=== PATIENT | male | born 1940 | race Two or more races ===

== ENCOUNTER 2024-01-10 09:37 | Emergency (ER) | payer OTHER, MEDICARE ==
--- OUTSIDE RECORDS SUMMARY | 2024-01-10 09:41 | XMS REPORT | Clinical Summary ---
Author Name Unknown Organization [facility] Address [address] [place] [address] Care Team Providers Care District Extension Service Agent Name Role Phone Bryce Self MD Primary Care Provider Bryce Self MD Unavailable Mckinley Patterson MD Unavailable [phone] Mark Cook MD Unavailable [phone] Tonya Solomon MD Unavailable Allergies No known active allergies Medications Medication Sig Dispensed Refills Start Date End Date Status tacrolimus (PROGRAF) 1 mg capsule Take 1 mg by mouth every 12 (twelve) hours. 1 mg in AM and 0.5 mg in the evening 0 Active predniSONE (DELTASONE) 5 mg tablet Take 5 mg by mouth daily. 0 Active azithromycin (ZITHROMAX) 500 mg tablet Take 500 mg by mouth daily. 0 Active calcium carbonate-vitami n D3 1,250 mg (500 mg as elemental)-200 units tablet Take 1 tablet by mouth 3 (three) times a day with meals. 0 Active magnesium oxide (MAOX) 400 mg tablet Take 400 mg by mouth 4 (four) times a day. 0 Active ANTIOX#13/MIN/FA /LUTEIN/ZEAXAN (LIPOTRIAD ORAL) Take 1 tablet by mouth daily. 0 Active metoprolol tartrate (LOPRESSOR) 50 mg tablet Take 50 mg by mouth daily. 0 Active aspirin 81 mg EC tablet Take 81 mg by mouth daily. 0 Active cholecalciferol, vitamin D3, (VITAMIN D3) 2,000 units tab tablet Take 400 Units by mouth daily. 0 Active TAMSULOSIN HCL (TAMSULOSIN ORAL) Take 1 tablet by mouth daily. 0 Active hydrALAZINE (APRESOLINE) 50 mg tablet Take 50 mg by mouth 3 (three) times a day. Reported on 12/14/2016 0 Active pantoprazole (PROTONIX) 40 mg EC tablet Take 40 mg by mouth daily with breakfast. 0 Active amLODIPine (NORVASC) 2.5 mg tablet Take 2.5 mg by mouth twice daily. 0 Active mycophenolate (CELLCEPT) 250 mg capsule Take 250 mg by mouth twice daily. 0 Active rosuvastatin (CRESTOR) 20 mg tablet Take 20 mg by mouth at bedtime. 0 Active dapsone 25 mg tablet Take 50 mg by mouth daily. 0 Active finasteride (PROSCAR) 5 mg tablet Take 5 mg by mouth daily. 0 Active Jardiance 10 mg tab TAKE 1 TABLET BY MOUTH ONCE DAILY 0 02/09/2022 Active gabapentin (NEURONTIN) 100 mg capsule 3 (three) times a day. 0 02/09/2022 Active triamcinolone (KENALOG) 0.1% cream Apply 1 application topically to affected area(s) as needed for rash. 0 11/15/2023 Discontinued linaGLIPtin (TRADJENTA) 5 mg tab Take 5 mg by mouth daily. 0 11/15/2023 Discontinued Active Problems Problem Noted Date Diagnosed Date Scabies 10/12/2016 Encounters Date Type Department Care Team Description 11/15/2023 11:00 AM MEDICAL AFFAIRS LEADER [facility] - Dermatology [address] [place] [address] Main [facility], 9th [place] [address] Tonya Solomon MD Hemangioma of skin and subcutaneous tissue (Primary Dx); Seborrheic keratosis; Stasis dermatitis 11/15/2023 Travel after 01/10/2023 Surgical History Surgery Date Site/Laterality Comments HERNIA REPAIR inguinal hernia repair - 2021 Medical History Medical History Date Comments Covid-19 12/2021 Social History Tobacco Use Types Packs/Day Years Used Date Smoking Tobacco: Former Smokeless Tobacco: Never Tobacco Cessation:Counseling Given: Not Answered Sex and Gender Information Value Date Recorded Sex Assigned at Not on file Gender Identity Not on file Sexual Orientation Not on file Job Start Date Occupation Industry Not on file Not on file Not on file Obstetrics History Last Filed Vital Signs Vital Sign Reading Time Taken Comments Blood Pressure 149/77 11/15/2023 11:35 AM MEDICAL AFFAIRS LEADER Pulse 78 11/15/2023 11:35 AM MEDICAL AFFAIRS LEADER Temperature 36.5 C (97.7 F) 11/15/2023 11:[address] Respiratory Rate 18 11/15/2023 11:35 AM MEDICAL AFFAIRS LEADER Oxygen Saturation - - Inhaled Oxygen Concentration - - Weight - - Height - - Body Mass Index - - Plan of Treatment Health Maintenance Due Date Last Done Comments COVID-19 Vaccine (2022-2 4 season) 2023 05/11/2021, 10/31/2020, 10/10/2020 Influenza Vaccine 05/26/2023 07/24/2022, , 05/12/2020, Additional history exists Medical Devices Implanted Type Area Him Manager Device Identifier Shelf Expiration Date Model / Serial / Lot Defibrillator Description:Internal defibri llator - on left upper chest, placed in 08/2020. Care Teams District Extension Service Agent Relationship Specialty [place] [address] [place] [id number] PCP - General 11/25/15 Mark Cook MD [address] [place] [id number] PCP - External Primary Care Provider Family Practice 02/19/21 Bryce Self MD [address] [place] [id number] Physician 12/02/15 Mckinley Patterson MD [address] [place] [id number] Physician Gastroenterology 04/05/18 Tonya Solomon MD [address] [place] [id number] Physician Dermatology 03/30/22
[2024-01-10 10:13] LABS: Absolute Lymphocytes (CBC) 0.2 K/uL (0.7-4.9); Absolute Monocytes 0.2 K/uL (0.1-1.3); Absolute Neutrophil 7.5 K/uL (1.8-8.0); Basophils % 0.3 % (0-1.3); Eosinophils % 0.6 % (0-4.4); Hematocrit 43.6 % (39.6-49.0); Lymphocytes % 2.4 % (15.3-44.8); MCH 32.6 pg (27.0-35.0); MCHC 32.1 g/dL (32.0-36.0); MCV 101.5 fL (80-100); MPV 7.9 fL (7.6-11.3); Monocytes % 2.8 % (3.3-12.3); Neutrophils % 93.9 % (41.7-73.7); Platelets 129 thou/uL (152-406); RBC Red Blood Cell Count 4.29 M/uL (4.33-5.43); Red Cell Distribution Width 14.9 % (12.1-15.2)
[2024-01-10 10:34] LABS: Albumin 3.9 g/dL (3.4-5.0); Anion Gap 5.7 mEq/L (5.0-15.0); Bilirubin Direct 0.3 mg/dL (0-0.2); Bilirubin Indirect, Calculated 0.9 mg/dL (0.2-0.8); Bilirubin Total 1.2 mg/dL (0.2-1.0); Globulin 3.9 g/dL (2.3-3.5); Magnesium 2.1 mg/dL (1.6-2.4); Potassium 3.7 mEq/L (3.5-5.1); Protein, Total 7.8 g/dL (6.4-8.2)
[2024-01-10 10:35] LABS: Specific Gravity 1.025 (1.005-1.030); Sqamous Epithelial None Seen /HPF (None Seen); Urine Bacteria None Seen /HPF (<20); Urine Bilirubin NEGATIVE (Negative); Urine Blood Negative (Negative); Urine Clarity Clear (Clear); Urine Color Yellow (Yellow); Urine Culture Reflex Order NOT NEEDED; Urine Glucose 4+ (Over) (Negative); Urine Ketones NEGATIVE (Negative); Urine Micro Reflex YN NO BILL MICROSCOPIC; Urine Nitrite NEGATIVE (Negative); Urine Protein TRACE (Negative); Urine RBC <5 /HPF (None Seen); Urine Urobilinogen Normal (Normal); Urine WBC <5 /HPF (<5); Urine pH 6.5 (5.0-7.0)
[2024-01-10 10:36] LABS: Troponin High Sensitivity 170.1 pg/mL (<58.9)
[2024-01-10 10:38] LABS: Protime INR 1.09
[2024-01-10 11:11] LABS: Blood Morphology Comment NOT SEEN (NOT SEEN); Platelet Estimate DECR; White Blood Cell Scan OK (OK)
--- NOTE | 2024-01-10 11:23 | RAD REPORT ---
EXAM DESCRIPTION: CT - Chest Abdomen Pelvis W Cont - 01/10/2024 10:57 am CLINICAL HISTORY: abd/chest pain; h/o lung transplant COMPARISON: No comparisons TECHNIQUE: Thin axial CT images of the chest, abdomen, and pelvis, performed following intravenous a dministration of iodinated contrast. Multiplanar reformats were generated and reviewed. All CT scans are performed using dose optimization technique as appropriate and may include automated exposure control or mA/KV adjustment according to patient size. FINDINGS: The lungs are clear.Minimal bibasilar platelike atelectatic changes.No pleural or pericard ial effusion.No intrathoracic adenopathy. Surgical clips are seen in the mediastinum. The liver, spleen, pancreas, adrenal glands and kidneys are within normal limits. Tiny dependent hype rdense focus along the gallbladder body, may represent a small stone. No bowel obstruction, free air, free fluid or abscess. Fluid opacification throughout long segments o f mid to distal small bowel and the ascending colon, nonspecific. Normal appendix. No pathologic lym phadenopathy in the abdomen or pelvis. Mild prostatomegaly. No worrisome osseous finding. IMPRESSION: Nonspecific fluid opacification of the mid to distal small bowel and ascending colon, ma y relate to diarrheal state. No other acute intra-abdominal or intrathoracic process. Small gallstone. Mild prostatomegaly.
--- NOTE | 2024-01-10 11:41 | EDPHYS ---
Physician Documentation [facility] Name: Enoch Fam Age: 83 yrs Sex: Male : 1940 Arrival Date: 01/10/2024 Time: 09:37 Bed 8 Private MD: ED Physician Tatum Mac HPI: 01/09 09:43 This 83 yrs old [place] Male presents to ER via Unassigned with complaints of Chest sp3 Pain, Nausea/Vomiting/Diarrhea. 09:43 83-year-old male with complex medical history including pulmonary fibrosis now status sp3 post bilateral lung transplant, dilated cardiomyopathy, hypertension, among others who now presents to the ED with chief complaint diffuse abdominal pain, diarrhea that started this morning with 5-6 episodes of watery in nature without blood or mucus, and 2 episodes of emesis without coffee grounds, blood or mucus also starting this morning. Patient is on Xarelto. Patient states he had possible sick contacts with visiting family members over the last 1 to 2 days. Denies travel history or known bad food. He also denies fever. He does endorse chest pain after the vomiting. On review of systems he denies shortness of breath, back pain different from his baseline chronic back pain, other URI symptoms, rash, bleeding or any other signs or symptoms on ROS at this time.. Historical: - Allergies: 09:48 No Known Allergies; ph - PMHx: 09:48 Hypertension; pulmonary fibrosis; ph - Immunization history:: Adult Immunizations unknown. - Infectious Disease History:: Denies. - Social history:: Smoking status: Patient denies any tobacco usage or history of. ROS: 09:45 Constitutional: Negative for fever, chills, and weight loss, Eyes: Negative for injury, sp3 pain, redness, and discharge, ENT: Negative for injury, pain, and discharge, Neck: Negative for injury, pain, and swelling, Back: Negative for injury and pain, MS/Extremity: Negative for injury and deformity, Skin: Negative for injury, rash, and discoloration, Neuro: Negative for headache, weakness, numbness, tingling, and seizure, Psych: Negative for depression, anxiety, suicide ideation, homicidal ideation, and hallucinations, Allergy/Immunology: Negative for hives, rash, and allergies, Endocrine: Negative for neck swelling, polydipsia, polyuria, polyphagia, and marked weight changes, Hematologic/Lymphatic: Negative for swollen nodes, abnormal bleeding, and unusual bruising, 09:45 All other systems are negative, Exam: 09:45 Constitutional: This is a well developed, well nourished patient who is awake, alert, sp3 and in no acute distress. Head/Face: Normocephalic, atraumatic. Eyes: Pupils equal round and reactive to light, extra-ocular motions intact. Lids and lashes normal. Conjunctiva and sclera are non-icteric and not injected. Cornea within normal limits. Periorbital areas with no swelling, redness, or edema. Neck: Trachea midline, no thyromegaly or masses palpated, and no cervical lymphadenopathy. Supple, full range of motion without nuchal rigidity, or vertebral point tenderness. No Meningismus. Chest/axilla: Normal chest wall appearance and motion. Nontender with no deformity. No lesions are appreciated. Cardiovascular: Regular rate and rhythm with a normal S1 and S2. No gallops, murmurs, or rubs. Normal PMI, no JVD. No pulse deficits. Respiratory: Lungs have equal breath sounds bilaterally, clear to auscultation and percussion. No rales, rhonchi or wheezes noted. No increased work of breathing, no retractions or nasal flaring. Back: No spinal tenderness. No costovertebral tenderness. Full range of motion. Skin: Warm, dry with normal turgor. Normal color with no rashes, no lesions, and no evidence of cellulitis. 09:45 Abdomen/GI: Diffuse abdominal pain without peritoneal signs, rebound or guarding., Vital Signs: 09:45 BP 158 / 74; Pulse 66; Resp 22; Temp 97.8; Pulse Ox 97% on R/A; Weight 72.57 kg; Height ph 5 ft. 7 in. ; 10:44 BP 128 / 69; Pulse 60; Resp 18; Pulse Ox 97% on R/A; ph 12:02 BP 126 / 72; Pulse 60; Resp 18; Pulse Ox 95% on R/A; ph 14:10 BP 122 / 70; Pulse 61; Resp 18; Pulse Ox 97% on R/A; ph 16:00 BP 122 / 78; Pulse 61; Resp 16; Pulse Ox 94% on R/A; ph 17:00 BP 124 / 67; Pulse 60; Resp 16; Pulse Ox 97% on R/A; ph 18:35 BP 126 / 78; Pulse 60; Resp 18; Temp 98; Pulse Ox 98% on R/A; ph 09:45 Body Mass Index 25.06 (72.57 kg, 170.18 cm) ph MDM: 09:41 Patient medically screened. sp3 09:45 Data reviewed: vital signs, nurses notes, EMS record, diagnostic data from outside [facility], old medical records, lab test result(s), EKG, radiologic studies. ED course: 83-year-old male with very complex history noted above now presents with abdominal pain, vomiting and diarrhea with subsequent chest pain after vomiting. Differential diagnosis is broad and includes gastroenteritis from viral or bacterial or foodborne illness versus sick contacts, other abdominal pathology including ileus and/or obstruction, and to a lesser degree vascular pathology or acute coronary syndrome spectrum. Workup will include laboratory values, UA, EKG, CT scan of the chest abdomen and pelvis and general observation pending disposition.. 11:38 ED course: Repeat EKG demonstrates no significant abnormality. Troponin is elevated 170 sp3 in the setting of elevated creatinine at 1.7. Will need to trend this out we will need to trend this out further. CT scan demonstrates diarrheal state and we will treat with supportive care and hold antibiotics for now.. 13:34 ED course: Semiconductor Technician at this facility is down and after discussion with family they are [facility] whether calender operator is. We will attempt this process.. 18:50 ED course: Family came and picked up patient and they are driving him to [address] They do not want to go to [facility]. We tried multiple times for [facility] even through the transplant team and were denied transfer due to capacity each time.. 01/09 09:42 Order name: Basic Metabolic Panel; Complete Time: 11:17 sp3 01/09 09:42 Order name: CBC with Diff; Complete Time: 11:17 sp3 01/09 09:42 Order name: LFT's; Complete Time: 11: sp3 01/09 09:42 Order name: Magnesium; Complete Time: 11: sp3 01/09 09:42 Order name: NT PRO-BNP; Complete Time: 11: sp3 01/09 09:42 Order name: PT-INR; Complete Time: 11:17 sp3 01/09 09:42 Order name: Troponin HS; Complete Time: 11:17 sp3 01/09 09:42 Order name: Lactate w/ 2H reflex if indic.; Complete Time: 11:17 sp3 01/09 09:42 Order name: UAM; Complete Time: 11:17 sp3 01/09 10:17 Order name: CBC Smear Scan; Complete Time: 11:17 EDMS 01/09 09:42 Order name: CT Chest, Abdomen, Pelvis - W/Contrast; Complete Time: 11:27 sp3 01/09 09:42 Order name: EKG; Complete Time: 09:43 sp3 01/09 09:42 Order name: Cardiac monitoring; Complete Time: 09:51 sp3 01/09 09:42 Order name: EKG - Nurse/Tech; Complete Time: 09:55 sp3 01/09 09:42 Order name: IV Saline Lock; Complete Time: 09:51 sp3 01/09 09:42 Order name: Labs collected and sent; Complete Time: 10:01 sp3 01/09 09:42 Order name: O2 Per Protocol; Complete Time: 09:51 sp3 01/09 09:42 Order name: O2 Sat Monitoring; Complete Time: 09:51 sp3 Administered Medications: No medications were administered Disposition Summary: 01/10/24 18:50 Left Against Medical Advice Notes: Location: Home(01/10/24 18:50) sp3 Problem: an acute exacerbation(01/10/24 18:50) sp3 Symptoms: have worsened(01/10/24 18:50) sp3 Reason: other(01/10/24 18:50) sp3 Condition: Fair(01/10/24 18:50) sp3 Diagnosis - NSTEMI, AGAINST MEDICAL ADVICE sp3 Followup: sp3 - With: Private Physician - When: Upon discharge from the Emergency Department - Reason: Continuance of care Signatures: Dispatcher [employer] EDPorsche Watkins RN RN Tatum Rasmussen MD MD sp3 Corrections: (The following items were deleted from the chart) 09:43 09:43 BASIC METABOLIC PANEL+C.LAB.BRZ ordered. EDMS EDMS 09:43 09:43 CBC+H.LAB.BRZ ordered. EDMS EDMS 09:43 09:43 HEPATIC FUNCTION+C.LAB.BRZ ordered. EDMS EDMS 09:43 09:43 MAGNESIUM+C.LAB.BRZ ordered. EDMS EDMS 09:43 09:43 PROBNP+C.LAB.BRZ ordered. EDMS EDMS 09:43 09:43 PROTIME (+INR)+COAG.LAB.BRZ ordered. EDMS EDMS 09:43 09:43 Troponin High Sensitivity+C.LAB.BRZ ordered. EDMS EDMS 09:43 09:43 LACTATE+C.LAB.BRZ ordered. EDMS EDMS 11:19 09:43 83-year-old male with complex medical history including pulmonary fibrosis now sp3 status post bilateral lung transplant, dilated cardiomyopathy, hypertension, among others who now presents to the ED with chief complaint diffuse abdominal pain, diarrhea that started this morning with 5-6 episodes of watery in nature without blood or mucus, and 2 episodes of emesis without coffee grounds, blood or mucus also starting this morning. Patient states he had possible sick contacts with visiting family members over the last 1 to 2 days. Denies travel history or known bad food. He also denies fever. He does endorse chest pain after the vomiting. On review of systems he denies shortness of breath, back pain different from his baseline chronic back pain, other URI symptoms, rash, bleeding or any other signs or symptoms on ROS at this time.. sp3 13:37 11:41 Inpatient Admission sp3 sp3 13:37 11:41 Chasidy Aburto sp3 sp3 13:37 11:41 Telemetry/MedSurg (Inpatient) sp3 sp3 13:37 11:41 Stable sp3 sp3 13:37 11:41 an acute exacerbation sp3 sp3 13:37 11:41 have worsened sp3 sp3 13:37 11:41 Standard sp3 sp3 13:37 11:41 sp3 sp3 13:37 11:41 Chest pain, abdominal pain, gastroenteritis sp3 sp3 18:49 13:38 TBD sp3 sp3 18:49 13:38 [facility] sp3 sp3 18:49 13:38 Higher level of care sp3 sp3 18:49 13:38 Stable sp3 sp3 18:49 13:38 an acute exacerbation sp3 sp3 18:49 13:38 have worsened sp3 sp3 18:49 13:38 NSTEMI, chest pain, gastroenteritis sp3 sp3
--- NOTE | 2024-01-10 11:41 | ER ---
Nurse's Notes [facility] Name: Enoch Fam Age: 83 yrs Sex: Male : 1940 Arrival Date: 01/10/2024 Time: 09:37 Bed 8 Private MD: Diagnosis: NSTEMI, AGAINST MEDICAL ADVICE Presentation: 01/09 09:45 Chief complaint: EMS states: Called EMS for chest pain, N/V/D that started today, ph family members also have GI symptoms, VSS, does have cardiac hx. Coronavirus screen: Vaccine status: Patient reports receiving the 2nd dose of the covid vaccine. Ebola Screen: No symptoms or risks identified at this time. Initial Sepsis Screen: Does the patient meet any 2 criteria? No. Patient's initial sepsis screen is negative. Does the patient have a suspected source of infection? No. Patient's initial sepsis screen is negative. Risk Assessment: Do you want to hurt yourself or someone else? Patient reports no desire to harm self or others. Onset of symptoms was January 10, 2024. 09:45 Method Of Arrival: EMS: [facility] 09:45 Acuity: JEANNE 2 ph Triage Assessment: 09:50 General: Appears in no apparent distress. uncomfortable, well groomed, Behavior is ph calm, cooperative, appropriate for age. Pain: Complains of pain in chest. Cardiovascular: Reports chest pain, nausea, vomiting. Historical: - Allergies: 09:48 No Known Allergies; ph - PMHx: 09:48 Hypertension; pulmonary fibrosis; ph - Immunization history:: Adult Immunizations unknown. - Infectious Disease History:: Denies. - Social history:: Smoking status: Patient denies any tobacco usage or history of. Screenin:59 [facility] ED Fall Risk Assessment (Adult) History of falling in the last 3 months, ph including since admission No falls in past 3 months (0 pts) Confusion or Disorientation No (0 pts) Intoxicated or Sedated No (0 pts) Impaired Gait No (0 pts) Mobility Assist Device Used No (0 pt) Altered Elimination No (0 pt) Score/Fall Risk Level 0 - 2 = Low Risk Oriented to surroundings, Maintained a safe environment, Provided non-skid footwear, Hourly rounding (assess needs \T\ fall precautionary measures) done. Abuse screen: Denies threats or abuse. Denies injuries from another. Nutritional screening: No deficits noted. Tuberculosis screening: No symptoms or risk factors identified. Assessment: 09:57 General: Appears in no apparent distress. uncomfortable, well groomed, Behavior is ph calm, cooperative, appropriate for age. Pain: Complains of pain in chest Pain does not radiate. Neuro: Level of Consciousness is awake, alert, obeys commands, Oriented to person, place, time, situation. Cardiovascular: Reports chest pain, nausea, vomiting. Respiratory: Airway is patent Respiratory effort is even, Respiratory pattern is tachypnea. GI: Abdomen is non-distended, Reports diarrhea, nausea, vomiting. Derm: Skin is pink, warm \T\ dry. Musculoskeletal: Circulation, motion, and sensation intact. Range of motion: intact in all extremities. 10:44 Reassessment: Patient appears in no apparent distress at this time. Patient and/or ph family updated on plan of care and expected duration. Pain level reassessed. Patient is alert, oriented x 3, equal unlabored respirations, skin warm/dry/pink. 12:01 Reassessment: Patient appears in no apparent distress at this time. Patient and/or ph family updated on plan of care and expected duration. Pain level reassessed. Patient is alert, oriented x 3, equal unlabored respirations, skin warm/dry/pink. 14:10 Reassessment: Patient appears in no apparent distress at this time. Patient and/or ph family updated on plan of care and expected duration. Pain level reassessed. Patient is alert, oriented x 3, equal unlabored respirations, skin warm/dry/pink. 16:00 Reassessment: Patient appears in no apparent distress at this time. Pt asleep w/ stable ph VS. 17:38 Reassessment: Attempted to call report, no answer. ph 17:57 Reassessment: Patient appears in no apparent distress at this time. Patient and/or ph family updated on plan of care and expected duration. Pain level reassessed. Patient is alert, oriented x 3, equal unlabored respirations, skin warm/dry/pink. Report called to [facility], awaiting EMS for transport. 18:33 Reassessment: Daughter at bedside, states that they wish to sign out AMA and that she ph will take pt to [facility]. Vital Signs: 09:45 BP 158 / 74; Pulse 66; Resp 22; Temp 97.8; Pulse Ox 97% on R/A; Weight 72.57 kg; Height ph 5 ft. 7 in. ; 10:44 BP 128 / 69; Pulse 60; Resp 18; Pulse Ox 97% on R/A; ph 12:02 BP 126 / 72; Pulse 60; Resp 18; Pulse Ox 95% on R/A; ph 14:10 BP 122 / 70; Pulse 61; Resp 18; Pulse Ox 97% on R/A; ph 16:00 BP 122 / 78; Pulse 61; Resp 16; Pulse Ox 94% on R/A; ph 17:00 BP 124 / 67; Pulse 60; Resp 16; Pulse Ox 97% on R/A; ph 18:35 BP 126 / 78; Pulse 60; Resp 18; Temp 98; Pulse Ox 98% on R/A; ph 09:45 Body Mass Index 25.06 (72.57 kg, 170.18 cm) ph Vitals: 10:44 Cardiac Rhythm Assessment Paced. ph ED Course: 09:39 Patient arrived in ED. ph 09:40 Tatum Mac MD is Attending Physician. sp3 09:45 Porsche Mejia, RN is Primary Nurse. ph 09:48 Triage completed. ph 09:50 Arm band placed on Patient placed in an exam room, on a stretcher, on monitor and storage bin tender, ph on pulse oximetry. 10:00 Patient has correct armband on for positive identification. Bed in low position. Call ph light in reach. Side rails up X 1. Client placed on continuous cardiac and pulse oximetry monitoring. NIBP monitoring applied. monitoring engineer on. Door closed. Noise minimized. PO fluids given. 10:00 No provider procedures requiring assistance completed. ph 10:01 Maintain EMS IV. Dressing intact. Good blood return noted. Site clean \T\ dry. Gauge \T\ ph site: 20 RAC. IV is patent, with fluids infusing freely, with good blood return. 10:01 Basic Metabolic Panel Sent. ph 10:01 CBC with Diff Sent. ph 10:01 LFT's Sent. ph 10:01 Magnesium Sent. ph 10:01 NT PRO-BNP Sent. ph 10:01 PT-INR Sent. ph 10:01 Troponin HS Sent. ph 10:02 Lactate w/ 2H reflex if indic. Sent. ko1 10:44 O2 via room air. ph 10:59 CT Chest, Abdomen, Pelvis - W/Contrast In Process Unspecified. EDMS 11:38 EKG done, by ED staff, reviewed by Tatum Mac MD. ap3 11:39 Chasidy Aburto MD is Hospitalizing Provider. sp3 13:30 Dealer Development Manager paged at 13:30 dr lebron at [phone]. bd 15:43 Transfer initatiated with [facility] transfer center. em1 16:05 Pt accepted as a transfer to [facility] by Dr. Ramya Aburto. em1 17:50 Transportation arranged with [facility], ETA 30 minutes. em1 18:00 Daughter of Pt calls to advise of her wish to cancel transfer and her intent to sign pt em1 out AMA. Administered Medications: No medications were administered Medication: 10:00 VIS not applicable for this client. ph Outcome: 11:41 Decision to Hospitalize by Provider. sp3 13:38 ER care complete, transfer ordered by . sp3 18:55 AMA AMA form signed ph 18:55 Condition: stable 18:59 Patient left the ED. ap3 Signatures: Dispatcher [employer] EDMS Renee Castañeda, Bruce em1 Porsche Mejia, RN MORENA Sapphire Crespo RN RN ap3 Tatum Mac MD MD sp3 Callie Storey RN RN ko1
--- NOTE | 2024-01-10 12:32 | P.CNS ---
Date of Consult: 01/10/24 Reason for Consult: Elevated troponin in the setting of gastroenteritis; bilateral lung transpl Requesting Physician: Tatum Mac Chief Complaint: Elevated troponin; viral gastroenteritis; dyspnea History of Present Illness: Patient is a very pleasant 83-year-old gentleman who has a history of bilateral lung transplant and cardiomyopathy status post defibrillator placement who presents to the emergency room with complaints of persistent diarrhea. Patient has been nauseated and patient has had family members with a gastroenteritis. Patient was seen in the emergency room and he was noted to be short of breath. Patient workup including CT of the chest abdomen pelvis with contrast revealed gastroenteritis and chronic abnormal findings. Patient's creatinine was slightly elevated at 1.7. Patient's troponins were significantly elevated at 170. Patient denies having chest pain but he is more short of breath than his baseline. I assessed the patient, and he is feeling really weak and fatigued. He does not really feel like himself. He also receives IVIG therapy as part of his treatment for his lung transplant. He is on immunosuppressants including tacrolimus. Patient's creatinine was already elevated at baseline 1.7. Patient's troponins were found to be elevated. Patient's incident coordinator and his transplant team are at [facility]. In light of the fact that our Requirements Manager is down patient would probably warrant cardiac intervention, and we do not have the capabilities of performing it here. I spoken to family as patient's son-in-law is a physician here, Dr. Bartolome Cook, and have spoken to the patie nt himself. They are in agreement of being transferred for higher level of care at this time, and to be evaluated by their physicians including cardiology and transplant team. Will transfer to [facility] for further intervention. Allergies NKDA Allergy (Uncoded 10/19/15 07:41) Unknown - Past Medical/Surgical History -: CAD -: Dilated cardiomyopathy -: Bilateral lung transplant -: Chronic kidney disease -: Thrombocytopenia -: Chronic immunosuppressants Past Surgical History: Patient denies surgical history -: Bilateral lung transplant -: Defibrillator placement - Family History Father Family History: Reviewed- Non-Contributory - Social History Smoking Status: Never smoker Alcohol use: No CD- Drugs: No Review of Systems 10-point ROS is otherwise unremarkable Physical Examination Reviewed General: Alert, In no apparent distress, Oriented x3 Respiratory: Diminished Cardiovascular: Regular rate/rhythm Gastrointestinal: Normal bowel sounds, Soft and benign, Non-distended Musculoskeletal: No clubbing, No swelling Neurological: Sensation intact, Cranial nerves 3-12 intact, Abnormal gait, Abnormal strength Laboratory Data (last 24 hrs) 01/10/24 01/10/24 01/10/24 10:17 10:00 10:00 WBC 8.00 Hgb 14.0 Hct 43.6 Plt Count 129 L PT 12.0 INR 1.09 Sodium 138 Potassium 3.7 BUN 32 H Creatinine 1.72 H Glucose 162 H Magnesium 2.1 Total Bilirubin 1.2 H AST 29 ALT 26 Alkaline Phosphatase 60 - Problems (1) Non-STEMI (non-ST elevated myocardial infarction) Current Visit: Yes Status: Acute (2) Dilated cardiomyopathy Current Visit: Yes Status: Acute (3) Chronic kidney disease, stage III (moderate) Current Visit: Yes Status: Acute (4) Lung transplant status, bilateral Current Visit: Yes Status: Acute Conclusions/ Impression: Plan: 1. Non-STEMI; patient on with shortness of breath and a history of dilated cardiomyopathy status post defibrillator placement. Patient cardiology team and transplant team are located at [facility]. Patient also with chronic kidney disease. Our cardiac catheterization lab is not able to do any interventional procedures at this time so recommendation will be to transfer to patient's cardiology team as well as patient's transplant team will be available to assist in patient's management. Will continue with gentle hydration. Monitor volume status closely. Agree with family that patient would benefit on transfer to tertiary care facility, as well as being under the care of his own physicians at [facility], for further treatment. 2. Patient with bilateral lung transplant history; continue with immunosuppressants. Patient also receiving IVIG. Levels can be repeated and monitored at transplant center 3. Chronic kidney disease stage III; patient status post contrast and will pr obably need cardiac catheterization with additional contrast load. Will be best if he is at a facility where he only needs to get 1 cardiac cath. If he needs intervention they will be able to do it at their facility as we do not have a capability of doing any intervention. 4. Cardiomyopathy; status post defibrillator placement; continue monitoring on telemetry patient is ncqa specialist is also at [facility]. Patient incident coordinator Dr. Shimon Valerio, who is also at [facility] Will work on initiating transfer to [facility]. Critical Care: Yes Time Spent Managing Pts care (In Minutes): 50
[2024-01-11 06:24] VITALS: BP 126/78; TEMP 98; O2SAT 98
== END 2024-01-10 18:59 | disposition left against medical advice (07) ==
LOC: ER 09:37
DX: I21.4 Non-ST elevation (NSTEMI) myocardial infarction (principal); A08.4 Viral intestinal infection, unspecified; Z94.2 Lung transplant status; I12.9 Hypertensive chronic kidney disease with stage 1 through stage 4 chronic kidney disease, or unspecified chronic kidney disease; N18.30 Chronic kidney disease, stage 3 unspecified; Z95.810 Presence of automatic (implantable) cardiac defibrillator; Z79.01 Long term (current) use of anticoagulants
CPT/HCPCS: 85025; 81001; 80048; 36415; 83735; 85610; 80076; 83605; 84484; 83880; 71260; 74177; Q9967; 93005

== ENCOUNTER 2024-06-03 03:35 | Emergency (ER) | payer OTHER, MEDICARE ==
--- OUTSIDE RECORDS SUMMARY | 2024-06-03 03:38 | XMS REPORT | Clinical Summary ---
Author Name Unknown Organization [facility] [place] Address [address] [place] [address] Care Team Providers Care Career Development Manager Name Role Phone Bryce Self MD Primary Care Provider [phone] Bryce Self MD Unavailable Mckinley Patterson MD Unavailable [phone] Mark Cook MD Unavailable [phone] Tonya Solomon MD Unavailable Allergies No known active allergies Medications Medication Sig Dispensed Refills Start Date End Date Status tacrolimus (PROGRAF) 1 mg capsule Take 1 mg by mouth every 12 (twelve) hours. 1 mg in AM and 0.5 mg in the evening Active predniSONE (DELTASONE) 5 mg tablet Take 5 mg by mouth daily. Active azithromycin (ZITHROMAX) 500 mg tablet Take 500 mg by mouth daily. Active calcium carbonate-vitami n D3 1,250 mg (500 mg as elemental)-200 units tablet Take 1 tablet by mouth 3 (three) times a day with meals. Active magnesium oxide (MAOX) 400 mg tablet Take 400 mg by mouth 4 (four) times a day. Active ANTIOX#13/MIN/FA /LUTEIN/ZEAXAN (LIPOTRIAD ORAL) Take 1 tablet by mouth daily. Active metoprolol tartrate (LOPRESSOR) 50 mg tablet Take 50 mg by mouth daily. Active aspirin 81 mg EC tablet Take 81 mg by mouth daily. Active cholecalciferol, vitamin D3, (VITAMIN D3) 2,000 units tab tablet Take 400 Units by mouth daily. Active TAMSULOSIN HCL (TAMSULOSIN ORAL) Take 1 tablet by mouth daily. Active hydrALAZINE (APRESOLINE) 50 mg tablet Take 50 mg by mouth 3 (three) times a day. Reported on 12/14/2016 Active pantoprazole (PROTONIX) 40 mg EC tablet Take 40 mg by mouth daily with breakfast. Active amLODIPine (NORVASC) 2.5 mg tablet Take 2.5 mg by mouth twice daily. Active mycophenolate (CELLCEPT) 250 mg capsule Take 250 mg by mouth twice daily. Active rosuvastatin (CRESTOR) 20 mg tablet Take 20 mg by mouth at bedtime. Active dapsone 25 mg tablet Take 50 mg by mouth daily. Active finasteride (PROSCAR) 5 mg tablet Take 5 mg by mouth daily. Active Jardiance 10 mg tab TAKE 1 TABLET BY MOUTH ONCE DAILY 02/09/2022 Active gabapentin (NEURONTIN) 100 mg capsule 3 (three) times a day. 02/09/2022 Active triamcinolone (KENALOG) 0.1% cream Apply 1 application topically to affected area(s) as needed for rash. 11/15/2023 Discontinued linaGLIPtin (TRADJENTA) 5 mg tab Take 5 mg by mouth daily. 11/15/2023 Discontinued Active Problems Problem Noted Date Diagnosed Date Scabies 10/12/2016 Encounters Date Type Department Care Team Description 11/15/2023 11:00 AM CHINESE INSTRUCTOR [facility] Dermatology [address] [place] [address], [address] [place] [address] Tonya Solomon MD Hemangioma of skin and subcutaneous tissue (Primary Dx); Seborrheic keratosis; Stasis dermatitis 11/15/2023 Travel after 06/04/2023 Surgical History Surgery Date Site/Laterality Comments HERNIA [...] Comments Blood Pressure 149/77 11/15/2023 11:35 AM CHINESE INSTRUCTOR Pulse 78 11/15/2023 11:35 AM CHINESE INSTRUCTOR Temperature 36.5 C (97.7 F) 11/15/2023 11:[address] Respiratory Rate 18 11/15/2023 11:35 AM CHINESE INSTRUCTOR Oxygen Saturation - - Inhaled Oxygen Concentration - - Weight - - Height - - Body Mass Index - - Plan of Treatment Health Maintenance Due Date Last Done Comments COVID-19 Vaccine (2022-2 4 season) 2024 05/11/2021, 10/31/2020, 10/10/2020 Influenza Vaccine (#1) 2024 2, 08/20/2021, 05/12/2020, Additional history exists Pneumococcal Vaccine: 65+ Years Completed 1, 11/14/2018 Medical Devices Implanted Type Area Engineer Steam Device Identifier Shelf Expiration Date Model / Serial / Lot Defibrillator Description:Internal defibri llator - on left upper chest, placed in 08/2020. Care Teams Career Development Manager Relationship Specialty Start Date End Date Bryce Self MD [address] [place] [phone] [email or web address] PCP - General 11/25/15 Mark Cook MD [address] [place] [phone] [email or web address] PCP - External Primary Care Provider Family Practice 02/19/21 Bryce Self MD [address] [place] [phone] [email or web address] Physician 12/02/15 Mckinley Patterson MD [address] [place] [phone] [email or web address] Physician Gastroenterology 04/05/18 Tonya Solomon MD [address] [place] [phone] [email or web address] Physician Dermatology 03/30/22
[2024-06-03 04:11] LABS: PT Prothrombin Time 12.7 SECONDS (9.4-12.5); Protime INR 1.14
[2024-06-03 04:13] LABS: Absolute Eosinophils 0.1 K/uL (0-0.5); Absolute Lymphocytes (CBC) 0.8 K/uL (0.7-4.9); Absolute Monocytes 0.4 K/uL (0.1-1.3); Absolute Neutrophil 2.7 K/uL (1.8-8.0); Basophils % 0.5 % (0-1.3); Eosinophils % 3.2 % (0-4.4); Hematocrit 32.5 % (39.6-49.0); Hemoglobin 10.7 g/dL (13.6-17.9); Lymphocytes % 18.9 % (15.3-44.8); MCH 34.6 pg (27.0-35.0); MCHC 32.8 g/dL (32.0-36.0); MCV 105.4 fL (80-100); MPV 8.4 fL (7.6-11.3); Monocytes % 10.3 % (3.3-12.3); Neutrophils % 67.1 % (41.7-73.7); Nucleated Red Blood Cells % 0.1 % (0-0); Platelets 113 thou/uL (152-406); RBC Red Blood Cell Count 3.08 M/uL (4.33-5.43); Red Cell Distribution Width 16.3 % (12.1-15.2)
[2024-06-03 04:22] LABS: Anion Gap 11.2 mEq/L (5.0-15.0); Potassium 4.2 mEq/L (3.5-5.1)
[2024-06-03 04:24] LABS: Troponin High Sensitivity 69.9 pg/mL (<58.9)
[2024-06-03 05:10] LABS: Blood Morphology Comment NOTED (NOT SEEN); Macrocytosis SLIGHT; Platelet Estimate ADEQ; White Blood Cell Scan OK (OK)
--- NOTE | 2024-06-03 06:57 | EDPHYS ---
Physician Documentation [facility] Name: Enoch Fam Age: 83 yrs Sex: Male : 1940 Arrival Date: 06/03/2024 Time: 03:35 Bed 6 Private MD: ED Physician Pedro Berman HPI: 06/03 03:40 This 83 yrs old Male presents to ER via Unassigned with complaints of Chest Pain. ec2 03:40 Patient arrives today due to concern for chest pain.. ec2 03:42 Patient arrives today for evaluation of chest pain along with right ankle pain. Patient ec2 states that he twisted his right ankle and is having pain at the area. Also reports he is having left upper chest pain. States that he has a defibrillator in place. Is on Xarelto. No difficulty breathing. No nausea, no vomiting, no diarrhea. Patient reports no significant pain at this time.. Historical: - Allergies: 03:40 No Known Allergies; al5 - Home Meds: 03:40 tamsulosin 0.4 mg Oral cp24 1 cap once daily [Active]; tacrolimus 1 mg Oral cap every al5 12 hours [Active]; prednisone 10 mg Oral tab once daily [Active]; pantoprazole 40 mg Oral TbEC 1 tab once daily [Active]; Os-Clark 500 + D3 500 mg(1 Oral tab daily [Active]; metoprolol tartrate 25 mg Oral tab 1 tab once daily [Active]; magnesium oxide 400 mg Oral tab daily [Active]; azathioprine 100 mg Oral tab 1 tab once daily [Active]; aspirin 81 mg Oral TbEC 1 tab once daily [Active]; - PMHx: 03:40 Hypertension; pulmonary fibrosis; al5 - Immunization history:: Adult Immunizations up to date. - Infectious Disease History:: Denies. - Social history:: Smoking status: unknown. ROS: 03:42 Constitutional: as per hpi ec2 Exam: 03:42 Constitutional: GEN: NAD Head: atraumatic Eyes: EOMI Ears: External ears are ec2 normal. CV: regular rate LUNGS: no respiratory distress ABD: non-distended SKIN: no evidence of rashes MSK: no evidence of trauma Vital Signs: 03:40 BP 145 / 76; Pulse 62; Resp 16; Temp 97.8; Pulse Ox 95% on R/A; Weight 74.84 kg; Height al5 5 ft. 11 in. ; 03:45 BP 143 / 81; Pulse 62; Resp 15; Pulse Ox 94% on R/A; al5 04:00 BP 135 / 89; Pulse 60; Resp 18; Pulse Ox 94% on R/A; al5 04:25 BP 155 / 84; Pulse 62; Resp 16; Pulse Ox 95% on R/A; al5 04:30 BP 133 / 91; Pulse 62; Resp 17; Pulse Ox 96% on R/A; al5 04:45 BP 137 / 77; Pulse 61; Resp 17; Pulse Ox 95% on R/A; al5 05:00 BP 144 / 78; Pulse 59; Resp 18; Pulse Ox 96% on R/A; al5 05:30 BP 144 / 83; Pulse 62; Resp 19; Pulse Ox 95% on R/A; al5 05:45 BP 132 / 70; Pulse 65; Resp 19; Pulse Ox 96% ; al5 06:00 BP 143 / 84; Pulse 63; Resp 15; Pulse Ox 93% on R/A; al5 06:15 BP 142 / 76; Pulse 61; Resp 13; Pulse Ox 95% on R/A; al5 06:30 BP 144 / 74; Pulse 60; Resp 18; Pulse Ox 95% on R/A; al5 06:45 BP 133 / 72; Pulse 61; Resp 19; Pulse Ox 96% on R/A; al5 03:40 Body Mass Index 23.01 (74.84 kg, 180.34 cm) al5 MDM: 03:39 Patient medically screened. ec2 03:42 Data reviewed: vital signs. ED course: Patient arrives today for evaluation of chest ec2 pain and ankle pain. Examination remarkable for well-appearing nontoxic dividual's otherwise in no acute distress with a reassuring examination. Will obtain a cardiac workup, interrogate the patient's pacemaker, obtain radiograph of the chest as well as ankle. Differential includes appropriately functioning pacemaker, ACS, doubt PE, doubt dissection. Additionally consider an ankle sprain. . 03:54 ED course: [employer] interrogated, report indicates no arrhythmias, no treated ec2 pathologies, no shocks.. 03:56 ED course: EKG independently reviewed and interpreted by me, shows atrially paced ec2 rhythm with a rate of 61 otherwise no concerning pathology . 04:24 ED course: Troponin at 69, EMS had already given full dose aspirin. ec2 05:10 ED course: Metabolic profile shows renal dysfunction., Troponin at 69. CBC shows slight ec2 anemia. . 05:36 ED course: Chest x-ray and ankle x-ray showed no acute process.. ec2 06:29 ED course: Repeat EKG independently reviewed and interpreted by me, shows AV paced ec2 rhythm, rate of 64, is similar compared to initial.. 06:50 ED course: Of note most recent troponin level at previous visit at level of 170.. ec2 06:55 ED course: On repeat assessment patient without recurrence of symptoms, patient with ec2 repeat troponin which is essentially static at a level of 71. Will discharge home. Return precautions given. Instructed on follow-up with cardiology.. 06/03 03:39 Order name: Basic Metabolic Panel; Complete Time: 05:09 ec2 06/03 03:39 Order name: CBC with Diff; Complete Time: 05:10 ec2 06/03 03:39 Order name: PT-INR; Complete Time: 05:09 ec2 06/03 03:39 Order name: Troponin HS; Complete Time: 05:09 ec2 06/03 04:20 Order name: CBC Smear Scan; Complete Time: 05:10 EDMS 06/03 06:14 Order name: Troponin High Sensitivity; Complete Time: 06:54 ec2 06/03 03:39 Order name: XRAY Chest (1 view) ec2 06/03 03:42 Order name: Ankle Right 3 View XRAY ec2 06/03 03:39 Order name: EKG; Complete Time: 03:40 ec2 06/03 03:39 Order name: Cardiac monitoring; Complete Time: 04:23 ec2 06/03 03:39 Order name: EKG - Nurse/Tech; Complete Time: 04:23 ec2 06/03 03:39 Order name: IV Saline Lock; Complete Time: 04:23 ec2 06/03 03:39 Order name: Labs collected and sent; Complete Time: 04:23 ec2 06/03 03:39 Order name: O2 Per Protocol; Complete Time: 04:23 ec2 06/03 03:39 Order name: O2 Sat Monitoring; Complete Time: 04:23 ec2 06/03 03:39 Order name: Misc. Order: interrogate pacemaker; Complete Time: 04:23 ec2 06/03 05:48 Order name: Misc. Order: repeat ekg/trop at 0615; Complete Time: 06:28 ec2 06/03 06:14 Order name: EKG - Nurse/Tech; Complete Time: 06:28 ec2 Administered Medications: No medications were administered Disposition Summary: 06/03/24 06:56 Discharge Ordered Notes: Location: Home ec2 Condition: Stable ec2 Diagnosis - Chest pain, unspecified ec2 - Sprain of ankle ec2 Followup: ec2 - With: Private Physician - When: - Reason: Re-evaluation by your physician Discharge Instructions: - Discharge Summary Sheet ec2 - Nonspecific Chest Pain, Adult, [id number] ec2 Forms: - Medication Reconciliation Form ec2 - Antibiotic Education ec2 - Prescription Opioid Use ec2 - Patient Portal Instructions ec2 - Leadership Thank You Letter ec2 Signatures: Dispatcher [employer] EDPedro Rios MD MD ec2 Sapphire Ruiz RN RN al5 Corrections: (The following items were deleted from the chart) 06:15 06:15 Troponin High Sensitivity+C.LAB.BRZ ordered. EDMS EDMS
--- NOTE | 2024-06-03 06:57 | ER ---
Nurse's Notes [facility] Name: Enoch Fam Age: 83 yrs Sex: Male : 1940 Arrival Date: 06/03/2024 Time: 03:35 Bed 6 Private MD: Diagnosis: Chest pain, unspecified;Sprain of ankle Presentation: 06/03 03:40 Chief complaint: Patient states: c/o CP x30 min and bilat ankle pain. Coronavirus al5 screen: At this time, the client does not indicate any symptoms associated with coronavirus-19. Ebola Screen: No symptoms or risks identified at this time. 03:40 Initial Sepsis Screen: Does the patient meet any 2 criteria? No. Patient's initial al5 sepsis screen is negative. Does the patient have a suspected source of infection? No. Patient's initial sepsis screen is negative. Risk Assessment: Do you want to hurt yourself or someone else? Patient reports no desire to harm self or others. Onset of symptoms was June 03, 2024. 03:40 Acuity: JEANNE 2 al5 03:40 Method Of Arrival: EMS: [facility] al5 03:40 Care prior to arrival: IV initiated. 20 GA, in the right antecubital area. al5 03:40 Care prior to arrival: Medication(s) given: ASA, 81 mg, x 4. al5 Triage Assessment: 03:40 General: Appears in no apparent distress. Behavior is calm, cooperative. Pain: al5 Complains of pain in chest, right ankle and left medial ankle. EENT: No signs and/or symptoms were reported regarding the EENT system. Neuro: Level of Consciousness is awake, alert, obeys commands, Oriented to person, place, time, situation. Cardiovascular: Reports chest pain, shocking from pacemaker Capillary refill < 3 seconds Patient's skin is warm and dry. Rhythm is atrial pacer with capture. Respiratory: Airway is patent Respiratory effort is even, unlabored, Respiratory pattern is regular, symmetrical. GI: No signs and/or symptoms were reported involving the gastrointestinal system. : No signs and/or symptoms were reported regarding the genitourinary system. Derm: Skin is intact, Skin is pink, warm \T\ dry. normal. Musculoskeletal: No signs and/or symptoms reported regarding the musculoskeletal system. Historical: - Allergies: 03:40 No Known Allergies; al5 - Home Meds: 03:40 tamsulosin 0.4 mg Oral cp24 1 cap once daily [Active]; tacrolimus 1 mg Oral cap every al5 12 hours [Active]; prednisone 10 mg Oral tab once daily [Active]; pantoprazole 40 mg Oral TbEC 1 tab once daily [Active]; Os-Clark 500 + D3 500 mg(1 Oral tab daily [Active]; metoprolol tartrate 25 mg Oral tab 1 tab once daily [Active]; magnesium oxide 400 mg Oral tab daily [Active]; azathioprine 100 mg Oral tab 1 tab once daily [Active]; aspirin 81 mg Oral TbEC 1 tab once daily [Active]; - PMHx: 03:40 Hypertension; pulmonary fibrosis; al5 - Immunization history:: Adult Immunizations up to date. - Infectious Disease History:: Denies. - Social history:: Smoking status: unknown. Screenin:40 [facility] ED Fall Risk Assessment (Adult) History of falling in the last 3 months, al5 including since admission No falls in past 3 months (0 pts) Confusion or Disorientation No (0 pts) Intoxicated or Sedated No (0 pts) Impaired Gait No (0 pts) Mobility Assist Device Used No (0 pt) Altered Elimination No (0 pt) Score/Fall Risk Level 0 - 2 = Low Risk Oriented to surroundings, Maintained a safe environment, Hourly rounding (assess needs \T\ fall precautionary measures) done. 03:40 Abuse screen: Denies threats or abuse. Denies injuries from another. Nutritional al5 screening: No deficits noted. Tuberculosis screening: No symptoms or risk factors identified. Assessment: 03:40 Reassessment: see triage assessment. al5 03:40 Pain: Pain does not radiate. Pain began 30 min ago. al5 03:54 Reassessment: Used [employer] interrogator for pt pacemaker. jb4 04:10 Reassessment: Spoke with Tahira Snyder, [employer] Rep, Reports no abnormal findings. jb4 ER physician notified. 04:47 Reassessment: Patient appears in no apparent distress at this time. Patient and/or al5 family updated on plan of care and expected duration. Pain level reassessed. Patient is alert, oriented x 3, equal unlabored respirations, skin warm/dry/pink. chest pain improved, still has bilateral ankle pain. 05:44 Reassessment: Patient appears in no apparent distress at this time. No changes from al5 previously documented assessment. Patient and/or family updated on plan of care and expected duration. Pain level reassessed. Patient is alert, oriented x 3, equal unlabored respirations, skin warm/dry/pink. 06:54 Reassessment: Patient appears in no apparent distress at this time. No changes from al5 previously documented assessment. Patient and/or family updated on plan of care and expected duration. Pain level reassessed. Patient is alert, oriented x 3, equal unlabored respirations, skin warm/dry/pink. Vital Signs: 03:40 BP 145 / 76; Pulse 62; Resp 16; Temp 97.8; Pulse Ox 95% on R/A; Weight 74.84 kg; Height al5 5 ft. 11 in. ; 03:45 BP 143 / 81; Pulse 62; Resp 15; Pulse Ox 94% on R/A; al5 04:00 BP 135 / 89; Pulse 60; Resp 18; Pulse Ox 94% on R/A; al5 04:25 BP 155 / 84; Pulse 62; Resp 16; Pulse Ox 95% on R/A; al5 04:30 BP 133 / 91; Pulse 62; Resp 17; Pulse Ox 96% on R/A; al5 04:45 BP 137 / 77; Pulse 61; Resp 17; Pulse Ox 95% on R/A; al5 05:00 BP 144 / 78; Pulse 59; Resp 18; Pulse Ox 96% on R/A; al5 05:30 BP 144 / 83; Pulse 62; Resp 19; Pulse Ox 95% on R/A; al5 05:45 BP 132 / 70; Pulse 65; Resp 19; Pulse Ox 96% ; al5 06:00 BP 143 / 84; Pulse 63; Resp 15; Pulse Ox 93% on R/A; al5 06:15 BP 142 / 76; Pulse 61; Resp 13; Pulse Ox 95% on R/A; al5 06:30 BP 144 / 74; Pulse 60; Resp 18; Pulse Ox 95% on R/A; al5 06:45 BP 133 / 72; Pulse 61; Resp 19; Pulse Ox 96% on R/A; al5 03:40 Body Mass Index 23.01 (74.84 kg, 180.34 cm) al5 ED Course: 03:37 Patient arrived in ED. jj6 03:39 Pedor Berman MD is Attending Physician. ec2 03:40 No provider procedures requiring assistance completed. Maintain EMS IV. Dressing al5 intact. Good blood return noted. Site clean \T\ dry. Gauge \T\ site: 20G RAC. Flushed with 10 mL NS. 03:40 Patient maintains SpO2 saturation greater than 95% on room air. al5 03:40 Arm band placed on right wrist. Patient placed in the treatment room, on a stretcher. al5 03:40 Patient has correct armband on for positive identification. Bed in low position. Call al5 light in reach. Side rails up X 1. Provided Education on: processes and procedures. Client placed on continuous cardiac and pulse oximetry monitoring. NIBP monitoring applied. composing machine operator/tender on. 04:20 XRAY Chest (1 view) In Process Unspecified. EDMS 04:20 Ankle Right 3 View XRAY In Process Unspecified. EDMS 04:23 Sapphire Ruiz, RN is Primary Nurse. al5 04:23 CBC with Diff Sent. al5 04:23 Troponin HS Sent. al5 04:23 Basic Metabolic Panel Sent. al5 04:46 Triage completed. al5 07:05 IV discontinued, intact, bleeding controlled, No redness/swelling at site. Pressure rs5 dressing applied. Administered Medications: No medications were administered Medication: 03:40 VIS not applicable for this client. al5 Outcome: 06:56 Discharge ordered by . ec2 07:05 Discharged to home ambulatory, rs5 07:05 Condition: stable 07:05 Discharge instructions given to patient, family, Instructed on discharge instructions, follow up and referral plans. Demonstrated understanding of instructions, follow-up care, medications, 07:07 Patient left the ED. rs5 Signatures: Dispatcher [employer] EDAugusto Garcia RN RN jb4 Leann Perez jj6 Pablo Lagunas RN RN rs5 Pedro Berman MD MD ec2 Sapphire Ruiz RN RN al5 Corrections: (The following items were deleted from the chart) 04:47 04:43 Chief complaint: Patient states: c/o CP x30 min and bilateral ankle pain al5 al5 04:47 04:43 Coronavirus screen: At this time, the client does not indicate any symptoms al5 associated with coronavirus-19. al5 04:43 Ebola Screen: No symptoms or risks identified at this time. al5 ak5 04:43 Initial Sepsis Screen: Does the patient meet any 2 criteria? No. Patient's al5 initial sepsis screen is negative. Does the patient have a suspected source of infection? No. Patient's initial sepsis screen is negative. al5 04:43 Onset of symptoms was June 03, 2024 al5 ak5 47 04:43 Risk Assessment: Do you want to hurt yourself or someone else? Patient reports no al5 desire to harm self or others. ak5 04:43 Method Of Arrival: Ambulatory [facility]5 47 04:43 BP 145 / 76; Pulse 62bpm; Resp 16bpm; Pulse Ox 95% RA; Temp 97.8F; 74.84 kg; al5 Height 5 ft. 11 in.; BMI: 23.0; ak5 47 04:43 Acuity: JEANNE 2 al5 ak5 04:48 03:40 Method Of Arrival: [facility] 05:34 04:56 Reassessment: see triage assessment al5 al5
[2024-06-03 07:11] VITALS: TEMP 97.8
[2024-06-03 07:32] VITALS: BP 133/72; O2SAT 96
--- NOTE | 2024-06-03 19:17 | RAD REPORT ---
EXAM DESCRIPTION: XR ANKLE 3 OR MORE VIEWS RIGHT CLINICAL HISTORY: Pain. COMPARISON: None. TECHNIQUE: 3 views of the right ankle FINDINGS: BONES: No acute fracture or malalignment. Mild fragmentation at inferior tip of medial mal leolus is corticated, likely chronic. No suspicious sclerotic or lytic lesion. SOFT TISSUE: Unremarkable. OTHER: None. IMPRESSION: No acute bony abnormality. Electronically signed by: Angelita Negrete MD 06/03/2024 05:30 AM CDT RP Due to temporary technical issues with the PACS/Fluency reporting system, reports are being signed by the in house radiologists without review as a courtesy to insure prompt reporting. The interpreting radiologist is fully responsible for the content of the report.
--- NOTE | 2024-06-03 19:18 | RAD REPORT ---
EXAM DESCRIPTION: XR CHEST 1 VIEW CLINICAL HISTORY: Chest pain. COMPARISON: XR Chest 12/28/2021, report only. FINDINGS: SUPPORT DEVICES: Left-sided AICD in place. Mediastinal surgical clips in place. LUNGS/PLEURAL SPACES: The lungs are clear. No pleural effusion. No pneumothorax. HEART/MEDIASTINUM: Heart is normal in size. BONES/UPPER ABDOMEN/SOFT TISSUES: No acute findings. IMPRESSION: No radiographic evidence of active pulmonary process. Electronically signed by: Angelita Negrete MD 06/03/2024 05:32 AM CDT Due to temporary technical issues with the PACS/Fluency reporting system, reports are being signed by the in house radiologists without review as a courtesy to insure prompt reporting. The interpreting radiologist is fully responsible for the content of the report.
--- NOTE | 2024-06-04 16:58 | EKG ---
Test Date: 2024-06-03 Test Time: 06:20:01 Manager Relocation: ADRIANA MEASUREMENT RESULTS: Intervals: Rate: 64 [place]: 172 QRSD: 178 QT: 488 QTc: 503 [place]: P: -27 [place]: 172 QRS: -79 T: 81 INTERPRETIVE STATEMENTS: AV dual-paced rhythm Abnormal ECG Compared to ECG 01/10/2024 11:36:25 Atrial-paced complex(es) or rhythm no longer present Left anterior fascicular block no longer present Left ventricular hypertrophy no longer present Early repolarization no longer present Electronically Signed On 06-04-24 16:53:32 CDT by Sulaiman Alvarado
== END 2024-06-03 07:07 | disposition home or self-care (01) ==
LOC: ER 03:35
DX: R07.9 Chest pain, unspecified (principal); S93.401A Sprain of unspecified ligament of right ankle, initial encounter; I10 Essential (primary) hypertension; Z95.0 Presence of cardiac pacemaker
CPT/HCPCS: 36415; 71045; 80048; 84484; 85025; 85610; 93005; 99284

== ENCOUNTER 2024-06-11 14:30 | Emergency (ER) | payer OTHER, MEDICARE ==
--- OUTSIDE RECORDS SUMMARY | 2024-06-11 14:33 | XMS REPORT | Clinical Summary ---
Author Name Unknown Organization [facility] [place] Address [address] [place] [address] Care Team Providers Care Manager Graphic Name Role Phone Bryce Self MD Primary Care Provider [phone] Bryce Self MD Unavailable Mckinley Patterson MD Unavailable [phone] Mark Cook MD Unavailable [phone] Tonya Solomon MD Unavailable Allergies No [...] Department Care Team Description 11/15/2023 11:00 AM PATHOLOGY MANAGER [facility] - Dermatology [address] [place] [address], [address] [place] [address] Tonya Solomon MD Hemangioma of skin and subcutaneous tissue (Primary Dx); Seborrheic keratosis; Stasis dermatitis 11/15/2023 Travel after 06/12/2023 Surgical History Surgery Date Site/Laterality Comments HERNIA [...] Comments Blood Pressure 149/77 11/15/2023 11:35 AM PATHOLOGY MANAGER Pulse 78 11/15/2023 11:35 AM PATHOLOGY MANAGER Temperature 36.5 C (97.7 F) 11/15/2023 11:[address] Respiratory Rate 18 11/15/2023 11:35 AM PATHOLOGY MANAGER Oxygen Saturation - - Inhaled Oxygen Concentration - - Weight - - Height - - Body Mass Index - - Plan of Treatment Health Maintenance Due Date Last Done Comments COVID-19 Vaccine (2022-2 4 season) 2024 05/11/2021, 10/31/2020, 10/10/2020 Influenza Vaccine (#1) 2024 2, 08/20/2021, 05/12/2020, Additional history exists Pneumococcal Vaccine: 65+ Years Completed 1, 11/14/2018 Medical Devices Implanted Type Area Comb Capper Device Identifier Shelf Expiration Date Model / Serial / Lot Defibrillator Description:Internal defibri llator - on left upper chest, placed in 08/2020. Care Teams Manager Graphic Relationship Specialty Start Date End Date Bryce Self MD [address] [place] [id number] [email or web address] PCP - General 11/25/15 Mark Cook MD [address] [place] [id number] [email or web address] PCP - External Primary Care Provider Family Practice 02/19/21 Bryce Self MD [address] [place] [phone] [email or web address] Physician 12/02/15 Mckinley Patterson MD [address] [place] [phone] [email or web address] Physician Gastroenterology 04/05/18 Tonya Solomon MD [address] [place] [phone] [email or web address] Physician Dermatology 03/30/22
[2024-06-11 15:13] LABS: Absolute Lymphocytes (CBC) 0.4 K/uL (0.7-4.9); Absolute Monocytes 0.5 K/uL (0.1-1.3); Absolute Neutrophil 4.1 K/uL (1.8-8.0); Basophils % 0.1 % (0-1.3); Eosinophils % 0.2 % (0-4.4); Hematocrit 34.5 % (39.6-49.0); Lymphocytes % 7.4 % (15.3-44.8); MCH 34.5 pg (27.0-35.0); MCV 107.9 fL (80-100); MPV 8.4 fL (7.6-11.3); Monocytes % 9.6 % (3.3-12.3); Neutrophils % 82.7 % (41.7-73.7); Platelets 111 thou/uL (152-406); RBC Red Blood Cell Count 3.19 M/uL (4.33-5.43)
[2024-06-11] MEDS ORDERED: NA CHLORIDE 0.9% 1,000 ML ONE (15:21)
[2024-06-11 15:33] LABS: Albumin 3.1 g/dL (3.4-5.0); Albumin/Globulin Ratio 0.9 (1.1-1.8); Anion Gap 7.4 mEq/L (5.0-15.0); Bilirubin Total 1.2 mg/dL (0.2-1.0); Globulin 3.3 g/dL (2.3-3.5); Potassium 4.4 mEq/L (3.5-5.1); Protein, Total 6.4 g/dL (6.4-8.2)
[2024-06-11 15:40] LABS: Troponin High Sensitivity 72.2 pg/mL (<58.9)
[2024-06-11 16:35] LABS: Specific Gravity 1.023 (1.005-1.030); Sqamous Epithelial <5 /HPF (None Seen); Urine Bacteria None Seen /HPF (<20); Urine Bilirubin NEGATIVE (Negative); Urine Blood Negative (Negative); Urine Clarity Clear (Clear); Urine Color Yellow (Yellow); Urine Culture Reflex Order NOT NEEDED; Urine Glucose 4+ (Over) (Negative); Urine Ketones NEGATIVE (Negative); Urine Micro Reflex YN NO BILL MICROSCOPIC; Urine Mucus Slight /HPF (None Seen); Urine Nitrite NEGATIVE (Negative); Urine Protein TRACE (Negative); Urine RBC <5 /HPF (None Seen); Urine Urobilinogen Normal (Normal); Urine WBC None Seen /HPF (<5)
--- NOTE | 2024-06-11 17:27 | RAD REPORT ---
EXAMINATION: CT ABDOMEN AND PELVIS WITH CONTRAST CLINICAL INDICATION: Male, 83 years old. [facility] MAIN ABD PAIN IV ONLY Bed Name: 8 TECHNIQUE: CT abdomen and pelvis was performed, after the administration of IV contrast, as per [facility] protocol. Axial, sagittal and coronal reconstructions were obtained. One or more of the following dose reduction techniques were used: Automated exposure control, adjustment of the mA and k V according to patient size, and iterative reconstruction. Unless otherwise specified, incidental findings do not require dedicated imaging follow-up. COMPARISON: 01/10/2024 chest/abdomen/pelvis CT FINDINGS: LOWER CHEST: The visualized lung bases are clear. LIVER: Normal in size and contour. No focal lesion. BILIARY SYSTEM: No suspicious abnormalities. SPLEEN: Normal size. No focal lesion. PANCREAS: No mass, ductal dilation, or tena-pancreatic fluid. Region of fatty infiltration along the head and body ADRENALS: Normal; no mass. KIDNEYS: Normal size and contour. No hydronephrosis. URINARY BLADDER: Mild diffuse wall prominence. Suboptimal distention limits evaluation. GASTROINTESTINAL TRACT: No evidence of free air, significant intra-abdominal free fluid, bowel obstru ction or abscess. Nonspecific mild fluid opacification of nondistended segmental small bowel and large bowel loops. APPENDIX: Normal appendix. LYMPH NODES: No lymphadenopathy. MUSCULOSKELETAL: No acute or suspicious osseous abnormality. ADDITIONAL FINDINGS: Prostatomegaly. IMPRESSION: Nonspecific mild fluid opacification of segmental small bowel and large bowel loops, particularly mil d enterocolitis or diarrheal state. Mild diffuse wall prominence of the bladder, could be related to underdistention or ongoing cystitis. Please correlate clinically and with urinalysis results. Prostatomegaly.
--- NOTE | 2024-06-11 18:24 | EDPHYS ---
Physician Documentation [facility] Name: Enoch Fam Age: 83 yrs Sex: Male : 1940 Arrival Date: 06/11/2024 Time: 14:30 Bed 8 Private MD: ED Physician Sotero Chester HPI: 06/11 14:58 This 83 yrs old [place] Male presents to ER via EMS with complaints of diarrhea. rt 14:58 . rt 14:58 Patient presents to the ED with diarrhea, nausea, lower abdominal pain for 2 days. rt Denies vomiting. Difficulty breathing. Denies complaints at this time, symptoms are moderate in severity, no aggravating or alleviating factors.. Historical: - Allergies: 14:40 Amoxicillin; rs5 - PMHx: 14:40 Hypertension; pulmonary fibrosis; "intestinal problems" (pulmonary fibrosis); rs5 - PSHx: 14:40 pacemaker placement (pulmonary fibrosis); double lung transplant (pulmonary fibrosis); rs5 - Immunization history:: Adult Immunizations up to date. - Infectious Disease History:: Denies. - Family history:: not pertinent. - Social history:: Smoking status: Patient denies any tobacco usage or history of. ROS: 14:58 Constitutional: Negative for fever, chills, and weight loss, Cardiovascular: Negative rt for chest pain, palpitations, and edema, Respiratory: Negative for shortness of breath, cough, wheezing, and pleuritic chest pain, MS/Extremity: Negative for injury and deformity, Skin: Negative for injury, rash, and discoloration, Neuro: Negative for headache, weakness, numbness, tingling, and seizure, 14:58 Abdomen/GI: Positive for abdominal pain, diarrhea, Mild tenderness to the lower quadrants without guarding, rebound distention, Exam: 15:00 Constitutional: This is a well developed, well nourished patient who is awake, alert, rt and in no acute distress. Head/Face: Normocephalic, atraumatic. Chest/axilla: Normal chest wall appearance and motion. Nontender with no deformity. No lesions are appreciated. Cardiovascular: Regular rate and rhythm with a normal S1 and S2. No gallops, murmurs, or rubs. Normal PMI, no JVD. No pulse deficits. Respiratory: Lungs have equal breath sounds bilaterally, clear to auscultation and percussion. No rales, rhonchi or wheezes noted. No increased work of breathing, no retractions or nasal flaring. Skin: Warm, dry with normal turgor. Normal color with no rashes, no lesions, and no evidence of cellulitis. MS/ Extremity: Pulses equal, no cyanosis. Neurovascular intact. Full, normal range of motion. Neuro: Awake and alert, GCS 15, oriented to person, place, time, and situation. Cranial nerves II-XII grossly intact. Motor strength 5/5 in all extremities. Sensory grossly intact. Cerebellar exam normal. Normal gait. 15:00 Abdomen/GI: Mild tenderness to the lower quadrants without guarding, rebound distention, 15:17 ECG was reviewed by the Attending Physician. rt Vital Signs: 14:37 BP 138 / 74; Pulse 88; Resp 17; Temp 98.5(O); Pulse Ox 99% ; rs5 15:31 BP 133 / 77; Pulse 80; Resp 17; Pulse Ox 99% on R/A; rs5 16:56 BP 110 / 63; Pulse 62; Resp 17; Pulse Ox 99% ; rs5 18:38 BP 115 / 71; Pulse 60; Resp 17; Pulse Ox 99% on R/A; rs5 MDM: 14:37 Patient medically screened. rt 18:49 Differential Diagnosis Diarrhea, colitis, C. difficile. Data reviewed: vital signs, rt nurses notes, lab test result(s), radiologic studies. Consideration of Admission/Observation Escalation of care including admission/observation considered. Patient has labs that are at baseline. Noted to have elevated troponin, this is chronic for the patient. He has no chest pain, do not believe that he requires admission for this. Patient without colitis, electrolyte disturbances, any SIRS indicators. Admission not needed at this juncture. I suspect the diarrhea is due to long-term antibiotic use. Patient was able to provide a stool sample at discharge, will call in oral vancomycin should come back as positive for C. difficile but he has no signs of C. difficile complication radiographically. Had a long discussion with the patient regarding this as well as instructions to continue with his Imodium as well as add probiotics. He will follow-up with his GI doctor as an outpatient.. I considered the following discharge prescriptions or medication management in the emergency department Medications were administered in the Emergency Department. See MAR. Independent interpretation of the following test(s) in the Emergency Department CT Scan: My interpretation is No bowel obstruction seen on my interpretation of CT scan images. Counseling: I had a detailed discussion with the patient and/or guardian regarding the historical points, exam findings, and any diagnostic results supporting the discharge/admit diagnosis, lab results, radiology results, the need for outpatient follow up, to return to the emergency department if symptoms worsen or persist or if there are any questions or concerns that arise at home. 06/11 14:40 Order name: CBC with Diff rt 06/11 14:40 Order name: CMP; Complete Time: 15:44 rt 06/11 14:40 Order name: Lipase; Complete Time: 15:44 rt 06/11 14:40 Order name: UAM; Complete Time: 16:51 rt 06/11 14:40 Order name: Troponin High Sensitivity; Complete Time: 15:44 rt 06/11 15:45 Order name: CDIFF rt 06/11 14:40 Order name: CT Abd/Pelvis - IV Contrast Only; Complete Time: 17:28 rt 06/11 14:40 Order name: IV Saline Lock; Complete Time: 15:13 rt 06/11 14:40 Order name: Labs collected and sent; Complete Time: 15:13 rt 06/11 14:40 Order name: EKG - Nurse/Tech; Complete Time: 15:13 rt EC:17 Rate is 65 beats/min. Rhythm is regular, Paced with No ectopy, LVH with repolarization rt abnormality. Left axis deviation noted. ME interval is prolonged at 274 msec. QRS interval is normal. QT interval is normal. No Q waves. Administered Medications: 14:59 Drug: NS 0.9% IV 1000 ml IV at 1 bolus Per protocol; 1000 mL bolus Route: IV; Rate: 1 rs5 bolus; Site: right antecubital; 16:57 Follow up: Response: No adverse reaction; IV Status: Completed infusion rs5 Disposition Summary: 06/11/24 18:23 Discharge Ordered Notes: Location: Home rt Problem: new rt Symptoms: have improved rt Condition: Stable rt Diagnosis - Diarrhea, unspecified rt Followup: rt - With: Private Physician - When: 2 - 3 days - Reason: Discharge Instructions: - Discharge Summary Sheet rt - Food Choices to Help Relieve Diarrhea, Adult rt - Diarrhea, Adult rt - Probiotics rt Forms: - Medication Reconciliation Form rt - Antibiotic Education rt - Prescription Opioid Use rt - Patient Portal Instructions rt - Leadership Thank You Letter rt Signatures: Dispatcher [employer] EDNH Sotero Chester MD MD rt Pablo Lagunas, RN RN rs5 Corrections: (The following items were deleted from the chart) 14:40 14:40 Abdomen Pelvis W Con+CT.RAD.BRZ ordered. EDNH EDNH 15:00 14:58 Abdomen/GI: Positive for Mild tenderness to the lower quadrants without guarding, rt rebound distention, rt
--- NOTE | 2024-06-11 18:24 | ER ---
Nurse's Notes [facility] Name: Enoch Fam Age: 83 yrs Sex: Male : 1940 Arrival Date: 06/11/2024 Time: 14:30 Bed 8 Private MD: Diagnosis: Diarrhea, unspecified Presentation: 06/11 14:37 Chief complaint: EMS states: N/V and lower abdominal pain x2 days. Coronavirus screen: rs5 At this time, the client does not indicate any symptoms associated with coronavirus-19. Ebola Screen: No symptoms or risks identified at this time. Initial Sepsis Screen: Does the patient meet any 2 criteria? Yes Does the patient have a suspected source of infection? No. Patient's initial sepsis screen is negative. Risk Assessment: Do you want to hurt yourself or someone else? Patient reports no desire to harm self or others. Onset of symptoms was June 11, 2024. Care prior to arrival: Medication(s) given: 15 mg tordol IV initiated. 20 GA, in the right antecubital area. 14:37 Method Of Arrival: EMS: [facility] rs5 14:37 Acuity: JEANNE 3 rs5 Historical: - Allergies: 14:40 Amoxicillin; rs5 - PMHx: 14:40 Hypertension; pulmonary fibrosis; "intestinal problems" (pulmonary fibrosis); rs5 - PSHx: 14:40 pacemaker placement (pulmonary fibrosis); double lung transplant (pulmonary fibrosis); rs5 - Immunization history:: Adult Immunizations up to date. - Infectious Disease History:: Denies. - Family history:: not pertinent. - Social history:: Smoking status: Patient denies any tobacco usage or history of. Screenin:40 [facility] ED Fall Risk Assessment (Adult) History of falling in the last 3 months, rs5 including since admission No falls in past 3 months (0 pts) Confusion or Disorientation No (0 pts) Intoxicated or Sedated No (0 pts) Impaired Gait No (0 pts) Mobility Assist Device Used No (0 pt) Altered Elimination No (0 pt) Score/Fall Risk Level 0 - 2 = Low Risk Oriented to surroundings, Maintained a safe environment. 14:40 Abuse screen: Denies threats or abuse. Nutritional screening: No deficits noted. rs5 Tuberculosis screening: No symptoms or risk factors identified. Assessment: 14:40 General: Appears in no apparent distress. uncomfortable, Behavior is calm, cooperative. rs5 Pain: Complains of pain in abdomen Pain currently is 3 out of 10 on a pain scale. Quality of pain is described as aching, Is continuous. Neuro: Level of Consciousness is awake, alert, obeys commands, Oriented to person, place, time, situation. Cardiovascular: Patient's skin is warm and dry. Respiratory: Airway is patent Respiratory effort is even, unlabored, Respiratory pattern is regular, symmetrical. GI: Abdomen is round non-distended, Abd is soft and non tender X 4 quads. : No signs and/or symptoms were reported regarding the genitourinary system. EENT: No signs and/or symptoms were reported regarding the EENT system. Derm: Skin is intact, Skin is pink, warm \\T\\ dry. Musculoskeletal: Range of motion: intact in all extremities. 15:31 Reassessment: Patient and/or family updated on plan of care and expected duration. Pain rs5 level reassessed. Patient is alert, oriented x 3, equal unlabored respirations, skin warm/dry/pink. 16:56 Reassessment: No changes from previously documented assessment. rs5 18:01 Reassessment: No changes from previously documented assessment. rs5 18:48 Reassessment: Patient and/or family updated on plan of care and expected duration. Pain rs5 level reassessed. Patient is alert, oriented x 3, equal unlabored respirations, skin warm/dry/pink. Vital Signs: 14:37 BP 138 / 74; Pulse 88; Resp 17; Temp 98.5(O); Pulse Ox 99% ; rs5 15:31 BP 133 / 77; Pulse 80; Resp 17; Pulse Ox 99% on R/A; rs5 16:56 BP 110 / 63; Pulse 62; Resp 17; Pulse Ox 99% ; rs5 18:38 BP 115 / 71; Pulse 60; Resp 17; Pulse Ox 99% on R/A; rs5 ED Course: 14:37 Patient arrived in ED. rs5 14:37 Sotero Chester MD is Attending Physician. rt 14:40 Triage completed. rs5 14:40 No provider procedures requiring assistance completed. rs5 14:40 Patient has correct armband on for positive identification. Placed in gown. Bed in low rs5 position. Call light in reach. Side rails up X2. 15:10 Pablo Lagunas, RN is Primary Nurse. rs5 15:12 Troponin High Sensitivity Sent. bc6 15:13 CBC with Diff Sent. bc6 15:13 CMP Sent. bc6 15:13 Lipase Sent. bc6 15:13 Initial lab(s) drawn, by me, sent to lab. Maintain EMS IV. Dressing intact. Good blood bc6 return noted. Site clean \\T\\ dry. Gauge \\T\\ site: 20 \\T\\R AC. Flushed with 10 mL NS. 16:39 CT Abd/Pelvis - IV Contrast Only In Process Unspecified. EDMS 18:48 IV discontinued, intact, bleeding controlled, No redness/swelling at site. Pressure rs5 dressing applied. 18:49 Provided Education on: discharge instructions. rs5 Administered Medications: 14:59 Drug: NS 0.9% IV 1000 ml IV at 1 bolus Per protocol; 1000 mL bolus Route: IV; Rate: 1 rs5 bolus; Site: right antecubital; 16:57 Follow up: Response: No adverse reaction; IV Status: Completed infusion rs5 Medication: 15:30 VIS not applicable for this client. rs5 Outcome: 18:23 Discharge ordered by . rt 18:48 Discharged to home ambulatory, rs5 18:48 Condition: stable 18:48 Discharge instructions given to patient, family, Instructed on discharge instructions, follow up and referral plans. Demonstrated understanding of instructions, follow-up care, 18:50 Patient left the ED. rs5 Signatures: Dispatcher [employer] EDAR Sotero Chester MD MD rt Pablo Lagunas, RN RN rs5 Karolyn Arambula bc6
[2024-06-11 19:28] VITALS: TEMP 98.5; O2SAT 99
[2024-06-11 19:31] VITALS: BP 115/71
[2024-06-11 20:48] LABS: Anisocytosis 1+; Blood Morphology Comment NOTED (NOT SEEN); Platelet Estimate DECR; White Blood Cell Scan OK (OK)
[2024-06-11 20:49] LABS: Poikilocytosis 1+
[2024-06-12 02:38] LABS: C.diff Antigen/Toxin Ag neg : Tox neg (NEG : NEG); CDIFF INTERNAL NEG CONTROL White Background (WHITE BKGD); STOOL CONSISTENCY Formed/Solid (soft)
--- NOTE | 2024-06-13 12:25 | EKG ---
Test Date: 2024-06-11 Test Time: 15:11:34 Business Line Controller: MARTELL MEASUREMENT RESULTS: Intervals: Rate: 65 WA: 274 QRSD: 116 QT: 416 QTc: 432 Reynolds: P: 73 WA: 274 QRS: -62 T: -33 INTERPRETIVE STATEMENTS: Atrial-paced rhythm with prolonged AV conduction Left axis deviation Left ventricular hypertrophy with QRS widening ST & T wave abnormality, consider lateral ischemia Abnormal ECG Compared to ECG 06/03/2024 06:20:01 Left-axis deviation now present Left ventricular hypertrophy now present ST (T wave) deviation now present Possible ischemia now present AV dual-paced complex(es) or rhythm no longer present Electronically Signed On 06-13-24 12:18:45 CDT by Juve Whipple
== END 2024-06-11 18:50 | disposition home or self-care (01) ==
LOC: ER 14:30
DX: R19.7 Diarrhea, unspecified (principal); R11.0 Nausea; R10.30 Lower abdominal pain, unspecified; Z95.0 Presence of cardiac pacemaker; Z94.2 Lung transplant status
CPT/HCPCS: 85025; 81001; 36415; 87324; 84484; 83690; 80053; 74177; Q9967; J7030; 93005; 96360; 96361; 99284

== ENCOUNTER 2024-12-03 13:51 | Inpatient (IN) | payer OTHER, MEDICARE ==
--- OUTSIDE RECORDS SUMMARY | 2024-12-03 20:26 | XMS REPORT | Clinical Summary ---
Author Name Unknown Organization [facility] Address [address] [place] [address] Care Team Providers Care Load Manager Name Role Phone Bryce Self MD Primary Care Provider [phone] Bryce Self MD Unavailable Mckinley Patterson MD Unavailable [phone] Mark Cook MD Unavailable [phone] Tonya Solomon MD Unavailable Allergies No known active allergies Medications tacrolimus (PROGRAF) 1 mg capsule Take 1 mg by mouth every 12 (twelve) hours. 1 mg in AM and 0.5 mg in the evening Active predniSONE (DELTASONE) 5 mg tablet Take 5 mg by mouth daily. Active azithromycin (ZITHROMAX) 500 mg tablet Take 500 mg by mouth daily. Active calcium carbonate-vitam in D3 1,250 mg (500 mg as elemental)-200 units tablet Take 1 tablet by mouth 3 (three) times a day with meals. Active magnesium oxide (MAOX) 400 mg tablet Take 400 mg by mouth 4 (four) times a day. Active ANTIOX#13/MIN/F A/LUTEIN/ZEAXAN (LIPOTRIAD ORAL) Take 1 tablet by mouth daily. Active metoprolol tartrate (LOPRESSOR) 50 mg tablet Take 50 mg by mouth daily. Active aspirin 81 mg EC tablet Take 81 mg by mouth daily. Active cholecalciferol , vitamin D3, (VITAMIN D3) 2,000 units tab [...] 3 (three) times a day. 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 Insurance AARP-SECONDARY ONLY MEDICARE PART A AND B AARP-SECONDARY ONLY AARP-SECONDARY ONLY MEDICARE PART A AND B Care Teams Load Manager Relationship Specialty Start Date End Date Bryce Self MD [address] [place] [id number] [email or web address] PCP - General 11/25/15 Mark Cook MD [address] [place] [phone] [email or web address] PCP - External Primary Care Provider Family Practice 02/19/21 Bryce Self MD [address] [place] [phone] [email or web address] Physician 12/02/15 Mckinley Patterson MD [address] [place] [id number] [email or web address] Physician Gastroenterology 04/05/18 Tonya Solomon MD [address] [place] [id number] [email or web address] Physician Dermatology 03/30/22
[2024-12-03 20:59] LABS: Specific Gravity 1.017 (1.005-1.030); Sqamous Epithelial None Seen /HPF (None Seen); Urine Bacteria None Seen /HPF (<20); Urine Bilirubin NEGATIVE (Negative); Urine Blood Negative (Negative); Urine Clarity Clear (Clear); Urine Color Colorless (Yellow); Urine Culture Reflex Order NOT NEEDED; Urine Glucose 4+ (Over) (Negative); Urine Ketones NEGATIVE (Negative); Urine Micro Reflex YN NO BILL MICROSCOPIC; Urine Nitrite NEGATIVE (Negative); Urine Protein NEGATIVE (Negative); Urine RBC <5 /HPF (None Seen); Urine Urobilinogen Normal (Normal); Urine WBC None Seen /HPF (<5); Urine WBC Clump Rare /HPF (None Seen)
[2024-12-03 21:13] VITALS: BMI 23.9
[2024-12-03] MEDS ORDERED: cloNIDine HCL 0.1 MG TAB PO PRN (21:27)
[2024-12-03] MEDS ORDERED: ONDANSETRON 4 MG (ODT) TAB PO PRN (21:34)
[2024-12-03] MEDS ORDERED: DOCUSATE NA/SENNA CONC 1 TAB PO PRN (21:35)
[2024-12-03] MEDS: MELATONIN 5 MG TABLET PO PRN (22:51)
[2024-12-03] MEDS: HYDROCODONE/APAP 5/325 MG TAB PO PRN (22:51)
[2024-12-04] MEDS ORDERED: LIDOCAINE 4% PATCH ONE (01:58)
[2024-12-04] MEDS: LIDOCAINE 4% PATCH TOP SCH (02:05)
[2024-12-04] MEDS: ACETAMINOPHEN 500 MG TAB PO PRN (03:41)
[2024-12-04] MEDS: HYDROCODONE/APAP 10/325 TAB PO PRN (05:08)
[2024-12-04 07:08] LABS: Absolute Basophils 0.1 K/uL (0-0.5); Absolute Monocytes 0.3 K/uL (0.1-1.3); Absolute Neutrophil 2.9 K/uL (1.8-8.0); Basophils % 2.1 % (0-1.3); Eosinophils % 0.9 % (0-4.4); Hematocrit 39.2 % (39.6-49.0); Hemoglobin 12.8 g/dL (13.6-17.9); Lymphocytes % 22.5 % (15.3-44.8); MCH 33.4 pg (27.0-35.0); MCHC 32.7 g/dL (32.0-36.0); MCV 102.1 fL (80-100); MPV 7.9 fL (7.6-11.3); Monocytes % 6.7 % (3.3-12.3); Neutrophils % 67.8 % (41.7-73.7); Platelets 113 thou/uL (152-406); RBC Red Blood Cell Count 3.84 M/uL (4.33-5.43); Red Cell Distribution Width 15.8 % (12.1-15.2)
[2024-12-04] MEDS: PANTOPRAZOLE 40MG TABLET PO SCH (07:08)
[2024-12-04] MEDS: INSULIN REGULAR (HUMAN) 100 UNIT/ML SQ SCH (07:10)
[2024-12-04 07:29] LABS: Albumin/Globulin Ratio 0.9 (1.1-1.8); Bilirubin Direct 0.3 mg/dL (0-0.2); Bilirubin Indirect, Calculated 0.5 mg/dL (0.2-0.8); Bilirubin Total 0.8 mg/dL (0.2-1.0); Globulin 3.3 g/dL (2.3-3.5); Magnesium 1.8 mg/dL (1.6-2.4); Protein, Total 6.3 g/dL (6.4-8.2)
--- NOTE | 2024-12-04 07:44 | RAD REPORT ---
EXAMINATION: ONE VIEW CHEST XR CLINICAL INDICATION: r/o pna, hx of [facility] lung transplant 2009 TECHNIQUE: Frontal chest projection is submitted. Examination is limited by patient positioning and t echnique. COMPARISON: 06/03/2024 FINDINGS: The lungs are well inflated and clear. The heart is upper limit of normal in size. No displaced fract ures identified. Dual lead pacer/defibrillator device. IMPRESSION: No acute intrathoracic abnormalities.
[2024-12-04] MEDS: MAGNESIUM CHLORIDE 64 MG TAB PO SCH (08:00)
[2024-12-04] MEDS: DAPSONE 100 MG TAB PO SCH (08:01)
[2024-12-04] MEDS: methocarbamoL 500 MG TAB PO SCH (08:02)
[2024-12-04] MEDS: ASCORBIC ACID 500 MG TABLET PO SCH (08:02)
[2024-12-04] MEDS: TAMSULOSIN 0.4 MG SR CAP PO SCH (08:02)
[2024-12-04] MEDS: CALCIUM CARBONATE 500 MG TAB PO SCH (08:02)
[2024-12-04] MEDS: METOPROLOL TAR 50 MG TAB PO SCH (08:02)
[2024-12-04] MEDS: GABAPENTIN 300 MG CAP PO SCH ×2 (08:03→14:37)
[2024-12-04] MEDS: predniSONE 10 MG TAB PO SCH (08:03)
[2024-12-04] MEDS: FINASTERIDE 5 MG TAB PO SCH (08:03)
[2024-12-04] MEDS: AZITHROMYCIN 250 MG TAB PO SCH (17:41)
[2024-12-04] MEDS: RIVAROXABAN 15 MG TABLET PO SCH (17:41)
[2024-12-04] MEDS: ROSUVASTATIN 10 MG TAB PO SCH (21:04)
[2024-12-04] MEDS: VITAMIN D 5,000 UNIT CAP PO SCH (21:04)
[2024-12-04] MEDS: CETIRIZINE HCL 5 MG TABLET PO SCH (21:04)
--- NOTE | 2024-12-05 00:05 | HP ---
Date of Admission: 12/03/2024 Chief Complaint: Lot of back pain. History Of Present Illness: Mr. Fam is an 84-year-old patient with multiple medical problems in cluding coronary artery disease, congestive heart failure, hypertension, dyslipidemia, paroxysmal atr ial fibrillation, stage 3 kidney disease, GERD, peripheral neuropathy who had worsening lower back pa in and presented to [facility] in [place] on November 20 with severe worsening pain. He had been rece iving injections in the back and said he had received a total of 3 over about 6 months. However, the pain was so severe, was limiting his mobility and he is unable to function, unable to ambulate. He was evaluated by imaging in the lower back and was found to have both lumbar radiculopathy and neurop athy with pain going from the lower back down to the right lower extremity into the feet and in the l eft side. In addition, the pain is coming proximally from the distal area in his feet upwards. He w as evaluated by orthopedic service and found not to be a candidate for surgery. He did receive morph ine, gabapentin, acetaminophen, lidocaine patch and steroids. While there, he did have an insulin sl iding scale, nebulizer treatment, put on antimicrobial prophylaxis and was managed again for the zack re pain. Blood work did show a low hemoglobin, hematocrit, and some elevated BUN, of course with his chronic renal insufficiency. He was evaluated by the therapy service, found to require moderate ass istance as he began to ambulate. He did try a single prong cane and did require again for static and dynamic balance min assist. For toilet transfer, min assist and total distance ambulation was about 200 feet, but required min to mod assist. Prior to his worsening pain, he was independent, driving himself to [employer], and participated in ordinary activities including Bible study, grocery shopping. As a result of his new change in condition and his need for aggressive inpatient rehabilitation is ad mitted to the inpatient rehabilitation unit for physical and occupational therapy to help him return to his prior level of functioning and reduce risk of rehospitalization. Past Medical History: As noted above including complications from lung transplant, he had COVID-19, esophageal , CMV, colonic polyps, Mycobacterium avium intracellulare infection, recent ster oid use. He has hearing loss, hypertension, dyslipidemia, mass in the left chest wall and has had pu lmonary fibrosis with renal insufficiency and bilateral lung transplant done in 2010, thrombocytopeni a, diabetes mellitus, vision loss, and diffuse weakness. Imaging Studies: CT scan of the lumbar spine on 11/20 shows no acute lumbar abnormalities, moderate to severe degenerative stenosis. Allergies: AMOXICILLIN, CLAVULANIC ACID, AND METOCLOPRAMIDE. Medications: Tylenol Extra Strength 500 mg every 4 hours as needed; albuterol nebulizer 2.5 mg every 6 hours; Vitamin C 1000 mg daily; azithromycin 250 mg Monday, Monday, Monday; Zyrtec 10 mg at bed time, [place] 500 mg daily, Vitamin D3 5000 units daily, clonidine 0.1 mg every 4 hours as needed, dap sone 50 mg daily, Proscar 5 mg daily, gabapentin 600 mg 3 times daily, [place] 10/325 1 every 4 hours a s needed, Atrovent nebulizer 0.5 mg every 6 hours as needed, lidocaine patch apply 2 patches daily as needed, Slow-Mag 128 mg twice daily, melatonin 5 mg at bedtime, methocarbamol 500 mg 4 times daily, Lopressor 50 mg twice daily, Zofran 4 mg every 4 hours as needed, Protonix 40 mg daily, prednisone 10 mg daily, Xarelto 15 mg daily, Crestor 40 mg at bedtime, Senokot S 2 tablets at bedtime, Flomax 0.4 mg daily. Laboratory Studies: White blood cell count 4.3, hemoglobin 12.8, platelets 113. Sodium 139, potassi um 4.0 chloride 111, BUN 24, creatinine 1.06, glucose ranged from 69 to 99. Calcium 8.5. Magnesium 1.8. Total bilirubin 0.8, direct bilirubin 0.3, indirect bilirubin 0.5. AST 24, ALT 27, alkaline ph osphatase 55. His albumin is 3.0, prealbumin 18.0. Procalcitonin less than 0.05. Lactic acid 1.1. Hemoglobin A1c 5.1. Urinalysis 4+ glucose, otherwise unremarkable. Family History: Noncontributory. Social History: No alcohol, tobacco, or IV drug use. The patient lives in a single family home and does not engage in any risky behaviors. Family History: Noncontributory. Review of Systems: As noted, significant low back pain that is improved somewhat with multimodality treatment options. Otherwise, is normocephalic, atraumatic. Sclerae anicteric. Oropharynx moist. Neck is supple. [place] [address] is clear. Physical Examination: Vital Signs: Blood pressure 153/81, pulse 64, respiratory rate 18, temperature 97.4, oxygen saturati on 98%. HEENT: Again, he is normocephalic atraumatic, atraumatic. Sclerae anicteric. Oropharynx moist. Neck: Supple. Chest: Clear. Heart: Regular. Extremities: He is able to lift the legs off the bed, but there is significant pain going down from the back into the lower extremities. He has mild decreased stocking glove loss to light touch, tempe rature in the legs and the arms. Has some mild incoordination in trying to ambulate. Current Level Of Functioning: Currently, eating, supervision; dressing upper body is independent; lo wer body dressing, supervision; toileting, moderate assistance; wheelchair transfers, supervision; to ilet transfer, moderate assistance. Supervision for ambulation, wheelchair mobilization, supervision . Stairs, not done. Rehab And Medical Assessment And Plan: Mr. Fam is an 84-year-old patient admitted to the rehabi litation unit with impairment category 06, neurological condition. His impairment group code is 03.9 , other neurological condition. Etiologic diagnoses is lumbar radiculopathy due to lumbar spinal tiarra nosis and nerve root compression. In addition, he has decreased mobility, decreased physical functio neyda. He has some glucose intolerance, chronic low back pain radiating into the lower extremities. Has prostate hypertrophy. Has hypertension and is on chronic antibiotic therapy. He has a lung kelley splant and is on rejection therapy and chronic antibiotic therapy. Plan: He will have physical and occupational therapy 3 hours a day, 5 of 7 days. He will continue w ith comorbid condition medications, which have been noted and will have interval blood work. Imaging of his chest, abdomen, and pelvis if need be. He did have negative lactic acid and procalcitonin fo r any ongoing infection and will be checked at intervals for any potential and recurrent infection. He has pain again, will be addressed with multiple modalities as noted. Comorbid Conditions Impacting Rehabilitation: His big issue of course is the chronic pain in the marni k and again multimodality approach is to address the pain. He has also risk of significant infection given his immunocompromised state. Currently, all of his workup for infection is negative that will be checked on ongoing basis. In terms of the specific planning, he will have physical and occupatio nal therapy 3 hours a day, 5 of 7 days to improve his ability to transfer from bed to chair, to toile t, to the shower to ambulate 250 feet at least and to go up and down 10 steps and mobilize a wheelcha ir. Also, Speech may be needed to help with cognitive functioning, safety awareness as well. Mr. Fam has a good understanding of the process of admission to the inpatient rehabilitation [facility] t, how he will benefit from physical and occupational therapy. He will have 24 hours a day, 7 days a week skilled rehabilitation nursing, daily physician evaluation and management, and certified social workers in health care evaluation and management for discharge planning, home equipment, and to continue therapy. If need b e, additional help will be sought from the hospitalist service. Barriers To Discharge: Chronic pain has been his big issue. We will work hard to improve that and h elp him mobilize with minimum pain. Length Of Stay: About 12 days. Disposition: Expected to home to continue therapy via Home Health. Prognosis: Good. Code Status: Full code. Rehab Specific Goals: 1. Become independent with upper and lower body dressing, donning and doffing footwear. 2. Independently mobilize wheelchair 250 feet. 3. Independently ambulate with a rolling walker 250 feet. 4. Independently go up and down 10 steps with bilateral handrails. 5. Independently perform all cognitive functioning. 6. Independently perform all activities of daily living. The above goals were reviewed with Mr. Fam and he is in agreement. By signing this document, I acknowledge I personally performed a full physical examination on Mr. Pancho frye no later than 24 hours after his admission to the inpatient rehabilitation unit and determined that he is able to tolerate the above course of treatment at an intensive level for reasonable period of time. A detailed individualized plan of care for him will be completed by hospital day 4 based on the preadmission screen, history and phy sical, and therapy evaluations. LEXIE/WILD Voice ID: [id number]
[2024-12-05] MEDS: POLYETHYL GLY 3350 17 GM/DOSE PO PRN (08:24)
--- NOTE | 2024-12-06 01:40 | PN ---
Date of Progress Note: 12/05/2024 Time Of Service: 1:25 p.m. Subjective: Mr. Fam is doing very well. He says the pain is better managed, although still is somewhat moderate, and he is participating with therapy, getting around, mobilizing, transferring, do ing better. Objective: Denies any fevers, chills, nausea, vomiting. Still has significant back pain, but again is mitigated by medication. Physical Examination: Vital Signs: Blood pressure is 137/63, pulse 60, respiratory rate 18, temperature 97.3, O2 saturatio n 93%. General: Mr. Fam is lying in bed between therapy sessions. HEENT: He is normocephalic and atraumatic. Sclerae anicteric. Oropharynx pink and moist. Neck: Supple. Chest: Clear. Heart: Regular. Extremities: No significant clubbing, cyanosis, or edema noted. Laboratory Studies: White blood cell count 4.3, hemoglobin 12.8, platelets are 113. Glucose ranged from 96 to 132. Sodium 139, potassium 4.0, chloride 111, carbon dioxide 25, BUN 24, creatinine 1.06. Lactic acid 1.1. Procalcitonin less than 0.05. Urinalysis from the , just shows 4+ glucose. X-ray/imaging: Chest x-ray, which was done yesterday, shows no acute intrathoracic abnormalities. Medications: Extra Strength Tylenol 500 mg every 4 hours as needed; [place] 10/325 every 4 hours as ne eded; nebulizer treatment 2.5 mg every 6 hours; vitamin C 1000 mg daily; azithromycin 250 mg Monday, Monday, Monday; calcium carbonate 500 mg daily; Zyrtec 10 mg at bedtime; vitamin D 5000 units sonya y; Catapres 0.1 mg every 4 hours; dapsone 50 mg daily; Proscar 5 mg daily; gabapentin 600 mg 3 times daily; ipratropium nebulizer 0.5 mg nebulized every 6 hours; lidocaine patch 4% two patches daily; Sl ow-Mag twice daily; melatonin 5 mg at bedtime; Robaxin 500 mg twice daily; metoprolol ____ twice daily; Zofran 4 mg every 4 hours as needed; Protonix 40 mg daily; prednisone 10 mg daily ; Xarelto 15 mg daily; Crestor 40 mg at bedtime; Senokot S two tablets at bedtime; Flomax 0.4 mg sonya vázquez. Progress Made With Physical, Occupational, And Speech Therapy: Today, with physical therapy, he comp leted bed mobility, turning in bed with contact guard assistance, bed-to-sit transfer done with conta ct guard assistance. He ambulated 250 feet with a rolling walker and another 500 feet with contact g uard assistance. With occupational therapy, performed a short functional mobility exercise in a recl iner and did very well. Worked on sink side, oral and facial hygiene, grooming with setup assistance . He was evaluated by Speech Therapy and is doing well. Provided education and verbal discussions. Assessment: Mr. Fam is an 84-year-old patient with lumbar radicular pain. He is actually doing better. He has debility as well. He has decreased mobility, decreased physical functioning, again moderate pain from the lower back, prostate hypertrophy, atrial fibrillation, hypertension, shortness of breath, neuropathic pain, and on multiple suppressive antibiotic therapy. Plan: Again, physical, occupational, and speech therapy, 3.5 hours, 5 out of 7 days. We will contin ue with comorbid condition medications, which have been noted and he is working very hard and just br ought to the unit. LEXIE/WILD Voice ID: [id number] Report ID: [id number]
--- NOTE | 2024-12-06 17:02 | P.RH.PN ---
Estimated Length of Stay: 9 Expected Discharge Date: 12/10/24 Discharge Disposition Plan: Home Family Support: Yes Die Storage Clerk Goal: Mobility, Transfers, Self Care Vital Signs: Last Vital Signs Temp 97.7 F 12/06/24 07:48 Pulse 61 12/06/24 08:24 Resp 16 12/06/24 07:48 BP 148/71 H 12/06/24 08:24 Pulse Ox 92 12/06/24 07:48 Laboratory: Laboratory Last Values WBC 4.30 thou/uL (4.3-10.9) 12/04/24 06:59 RBC 3.84 M/uL (4.33-5.43) L 12/04/24 06:59 Hgb 12.8 g/dL (13.6-17.9) L 12/04/24 06:59 Hct 39.2 % (39.6-49.0) L 12/04/24 06:59 MCV 102.1 fL (80-100) H 12/04/24 06:59 MCH 33.4 pg (27.0-35.0) 12/04/24 06:59 MCHC 32.7 g/dL (32.0-36.0) 12/04/24 06:59 RDW 15.8 % (12.1-15.2) H 12/04/24 06:59 Plt Count 113 thou/uL (152-406) L 12/04/24 06:59 MPV 7.9 fL (7.6-11.3) 12/04/24 06:59 Neutrophils % 67.8 % (41.7-73.7) 12/04/24 06:59 Lymphocytes % 22.5 % (15.3-44.8) 12/04/24 06:59 Monocytes % 6.7 % (3.3-12.3) 12/04/24 06:59 Eosinophils % 0.9 % (0-4.4) 12/04/24 06:59 Basophils % 2.1 % (0-1.3) H 12/04/24 06:59 Absolute Neutrophils 2.9 K/uL (1.8-8.0) 12/04/24 06:59 Absolute Lymphocytes 1.0 K/uL (0.7-4.9) 12/04/24 06:59 Absolute Monocytes 0.3 K/uL (0.1-1.3) 12/04/24 06:59 Absolute Eosinophils 0.0 K/uL (0-0.5) 12/04/24 06:59 Absolute Basophils 0.1 K/uL (0-0.5) 12/04/24 06:59 Sodium 139 mEq/L (136-145) 12/04/24 06:59 Potassium 4.0 mEq/L (3.5-5.1) 12/04/24 06:59 Chloride 111 mEq/L (98-107) H 12/04/24 06:59 Carbon Dioxide 25 mEq/L (21-32) 12/04/24 06:59 Anion Gap 7.0 mEq/L (5.0-15.0) 12/04/24 06:59 BUN 24 mg/dL (7-18) H 12/04/24 06:59 Creatinine 1.06 mg/dL (0.70-1.30) 12/04/24 06:59 Est GFR (CKD-EPI) 69 ml/min (=/>90) L 12/04/24 06:59 Glucose 101 mg/dL (74-106) 12/04/24 06:59 POC Glucose 96 mg/dL (65-120) 12/05/24 06:34 Hemoglobin A1c 5.1 % (4.2-6.3) 12/04/24 06:59 Lactic Acid 1.1 mmol/L (0.4-2.0) 12/04/24 06:59 Calcium 8.5 mg/dL (8.5-10.1) 12/04/24 06:59 Magnesium 1.8 mg/dL (1.6-2.4) 12/04/24 06:59 Total Bilirubin 0.8 mg/dL (0.2-1.0) 12/04/24 06:59 Direct Bilirubin 0.3 mg/dL (0-0.2) H 12/04/24 06:59 Indirect Bilirubin 0.5 mg/dL (0.2-0.8) 12/04/24 06:59 AST 24 U/L (15-37) 12/04/24 06:59 ALT 27 U/L (16-61) 12/04/24 06:59 Alkaline Phosphatase 55 U/L (45-117) 12/04/24 06:59 Lactate Dehydrogenase 300 U/L (87-241) H 12/04/24 06:59 NT-Pro-B Natriuret Pep 4101 pg/mL (<450) H 12/04/24 06:59 Serum Total Protein 6.3 g/dL (6.4-8.2) L 12/04/24 06:59 Albumin 3.0 g/dL (3.4-5.0) L 12/04/24 06:59 Globulin 3.3 g/dL (2.3-3.5) 12/04/24 06:59 Albumin/Globulin Ratio 0.9 (1.1-1.8) L 12/04/24 06:59 Prealbumin 18.0 mg/dL (20-40) L 12/04/24 06:59 Procalcitonin < 0.05 ng/mL (<0.50) 12/04/24 06:59 Urine Color Colorless (Yellow) 12/03/24 20:40 Urine Clarity Clear (Clear) 12/03/24 20:40 Urine pH 7.0 (5.0-7.0) 12/03/24 20:40 Ur Specific [place] 1.017 (1.005-1.030) 12/03/24 20:40 Glucose (UA)(Auto) 4+ (over) (Negative) H 12/03/24 20:40 Urine Ketones Negative (Negative) 12/03/24 20:40 Urine Blood Negative (Negative) 12/03/24 20:40 Urine Nitrite Negative (Negative) 12/03/24 20:40 Urine Bilirubin Negative (Negative) 12/03/24 20:40 Urine Urobilinogen Normal (Normal) 12/03/24 20:40 Ur Leukocyte Esterase Negative Ernesto/uL (Negative) 12/03/24 20:40 Urine RBC <5 /HPF (None Seen) 12/03/24 20:40 Urine WBC None seen /HPF (<5) 12/03/24 20:40 Urine WBC Clumps Rare /HPF (None Seen) 12/03/24 20:40 Ur Squamous Epith Cells None seen /HPF (None Seen) 12/03/24 20:40 Urine Bacteria None seen /HPF (<20) 12/03/24 20:40 Urine Culture Reflexed Not needed 12/03/24 20:40 Urine Total Protein Negative (Negative) 12/03/24 20:40 Weight: 167 lb Physician Update: His labs were reviewed and are stable. He requires contact- guard assistance for bed mobility and transfers. He ambulated 500 feet with a rolling walker and contact-guard assistance. His lower back pain improved significantly after stretching along with a regimen of [place] and a neuromodulator. Summary: Patient's care plan and assistant terminal manager goals have been reviewed and revised as necessary. Please see the Rehabilitation Signature page for all necessary signatures.
[2024-12-06] MEDS: AMYLASE/LIPASE/PROTEASE CAP PO SCH (17:44)
[2024-12-06] MEDS: SIMETHICONE 80 MG CHEWABLE TAB PO PRN (23:47)
[2024-12-09] MEDS: IPRATROPIUM BROM 0.5MG/2.5ML NEB PRN (18:15)
[2024-12-09] MEDS: ALBUTEROL 2.5 MG/3 ML NEB SOL NEB PRN (18:15)
--- NOTE | 2024-12-10 00:17 | PN ---
Date of Progress Note: 12/09/2024 Time Of Service: 1:20 p.m. Subjective: Mr. Fam is doing very well. He is happy with his therapy, although last night he s till has some significant back pain and make it difficult for him to have a full night's rest. Objective: He denies any fevers, chills, nausea, vomiting. Some mild back pain as noted and medicat ions are helping in therapy as well including stretches. Physical Examination: Vital Signs: Blood pressure 127/65, pulse 84, respiratory rate 18, temperature 97.3, oxygen saturati on 96%. General: Again, Mr. Fam is resting comfortably. He is in no acute distress. He is in between therapy sessions. HEENT: He is normocephalic, atraumatic. Sclerae anicteric. Oropharynx pink, moist. Neck: Supple. Chest: Clear. Extremities: He has no significant edema, clubbing, or cyanosis. Laboratory Studies: Blood sugars ranged from 96 to 132. X-ray/imaging: No new x-rays or imaging. Medications: Medications have been reviewed and are unchanged. Progress Made With Physical And Occupational Therapy: Today with physical therapy, he was able to pe rform hilfpv-ok-bru transfers independently, multiple arb-mo-wzsin transfers and hdnnq-cb-vhhpc trans fers all done independently. He ambulated inside and outside of the hospital with a rolling walker o reji 500 feet, 120 feet independently. Also, he was able to on uneven surfaces including ramps, curve s, and the elevator covering 750 feet twice with standby assistance. He was able to go up and up 15 steps with bilateral handrails, all independently. With occupational therapy, independent with sit-t o-stand transfers, room to bathroom and room to shower, all independently. He is doing excellent. Assessment: Mr. Fam is an 84-year-old patient with chronic lower back pain and is doing excelle nt in terms of physical and occupational therapy. His comorbidities include decreased mobility, decr eased physical functioning, which is well managed, he has neuropathic pain, lumbar radiculopathy, all well managed, and he has muscle spasms again managed, blood pressure is managed well, fibrillation a ddressed with Xarelto. He has Mylicon for gas. He did say some abdominal bloating after breakfast a nd Flomax for urinary retention. Plan: In terms of plan, continue again with physical and occupational therapy. Continue with all ot her comorbid medications which have been noted and he is doing very well. We are recommending outpat ient physical therapy after discharge. LEXIE/WILD Voice ID: [id number] Report ID: [id number]
--- NOTE | 2024-12-11 01:08 | PN ---
Date of Progress Note: 12/10/2024 Time Of Service: 1:35 p.m. Subjective: Mr. Fam is doing very well. He is lying in bed. He is very happy with his therapy so far, although he would like to stay in the unit somewhat longer. He has done above and beyond wh at the therapist ever asked and despite his mild to moderate back pain, he is not refusing any therap y. Objective: He denies any fevers, chills, nausea, vomiting, myalgias, arthralgias except for the mild chronic back pain, which is the reason the patient is in the unit as he does have lumbar radiculopat hy due to disk herniation and nerve root compression. Physical Examination: Vital Signs: Blood pressure 133/68, pulse 66, respiratory rate 16, temperature 97.8, and oxygen satu ration 94%. General: He is lying in bed comfortably at this point in between therapy sessions. HEENT: He appears normocephalic, atraumatic. Sclerae anicteric. Oropharynx is pink and moist. Neck: Supple. Chest: Clear. Heart: Regular. Extremities: No significant clubbing, cyanosis, or edema noted. Laboratory Studies: No new laboratory studies. X-ray/imaging: No new x-rays or imaging. Medications: Have been reviewed and are unchanged. Progress Made With Physical And Occupational Therapy: Today with physical therapy, he did perform hussein pine-to-sit transfers independently, multiple nyb-tw-qravg transfers done independently, and stand-to -pivot transfers done independently as well. He ambulated 500 feet and 120 feet independently with a rolling walker and propelled a wheelchair 250 feet independently. He was up and down 15 steps indep endently. With occupational therapy, he did have some concerns about going home and was still somewh at worried about being able to take care of all his activities. Despite that, he did all of his acti vities including IADLs and ADLs independently and is ready for discharge home and he will continue th erapy via outpatient basis. Assessment: Mr. Fam is an 84-year-old patient admitted to the rehabilitation unit with lumbar r adiculopathy and debility. He does have mild decreased mobility, decreased physical functioning, but is doing very well. He has atrial fibrillation, hypertension, muscle spasms, and some abdominal blo ating and gas. Plan: He will continue with physical and occupational therapy for 3 hours a day, 5 of 7 days until r niurka for discharge. We will continue his list of comorbid condition medications. His chronic back p ain was managed by Pain Management. He will be following up with Pain Management for ongoing adjustm ents including injections, which he did receive a series of 3 injections in the back and again will b e following up after his discharge. It is recommended that he continue with outpatient therapy and estevan reeves is willing to take him to therapy including his daughter and son-in-law. LEXIE/WILD Voice ID: [id number] Report ID: [id number]
[2024-12-11 06:45] VITALS: BP 137/71; TEMP 97.9
--- NOTE | 2024-12-11 19:51 | PN ---
Date of Progress Note: 12/11/2024 Time Of Service: 1:35 p.m. Subjective: Mr. Fam is sitting at the side of bed, ready for discharge today, although he says he would be discharged, he wants to protest his discharge because he wants to stay longer. However, he is ambulating fully around the unit, up and down several steps, showing no loss of balance. Still reports no significant pain in the back, perhaps up to 7/10. The discussion was entered into and he is seeing a pain management physician in [place] and did receive 3 sets of injections. It was sugge sted that the patient see a local pain management physician such as perhaps Dr. Benji Cook. He may relate very well to him and receive medications including if possible morphine pump, some other darnell tment options, which Pain Management has. Objective: He again reports some moderate pain in the lower back, but currently he was very happy wi th his therapy. Despite that, did seem to have features of depression after he says he lives alone. His about 2 years ago. His children live about 10 minutes away, but at times he fe els very lonely. Physical Examination: Vital Signs: Blood pressure 137/71, pulse 63, respiratory rate 16, temperature 97.9, oxygen saturati on 96%. General: Again, Mr. Fam is sitting at the side of bed. HEENT: He appears normocephalic, atraumatic. Sclerae anicteric. Oropharynx pink and moist. Neck: Supple. Chest: Clear. Neuro: He has no focal neurological deficits. Still complains of significant lower back pain. Laboratory Studies: No new laboratory studies. X-ray/imaging: No new x-rays or imaging. Medications: Medications have been reviewed and are unchanged. Progress Made With Physical And Occupational Therapy: With physical therapy today, he was able to am bulate 500 feet and 120 feet, all independently with a rolling walker. Mobilized a wheelchair 250 fe et with independence. He was up and down 15 steps with bilateral handrails with independence. Multi ple jqw-tl-hgmhy transfers done independently, xhpsb-gh-pqciv transfers done independently. With his occupational therapy, he ambulated 150 feet with a rolling walker, picking up 10 small objects from the floor and the supervisor pleating, had no loss of balance, and did not require a rest break. Assessment: Mr. Fam is an 84-year-old patient in rehabilitation unit with lumbar radiculopathy, which has been somewhat moderately painful, but medications just were made and he is actually doing all therapy and at the time of his therapy, not complaining of any significant difficulty in terms of pain. He does have a comorbid likely depression with some anxiety in addition to neuropathic pain, atrial fibrillation, prostate hypertrophy, dyslipidemia, insomnia, and abdominal bloating due to gas. Plan: 1. He will continue with physical and occupational therapy 3 hours a day, 5 of 7 days until discharge . 2. He will have his comorbid condition medications addressed and those will continue. After discharg e, he will continue therapy outpatient, followup again with order entry specialist such as Dr. Erica Cook. LEXIE/WILD Voice ID: [id number] Report ID: [id number]
== END 2024-12-11 17:00 | disposition home health service (06) | DRG 552 ==
LOC: 5TH 20:04
PROVIDERS: ADMIT Psychiatry & Neurology Neurology with Special Qualifications in Child Neurology; ATTEND Psychiatry & Neurology Neurology with Special Qualifications in Child Neurology
DX: M48.062 Spinal stenosis, lumbar region with neurogenic claudication (principal); I13.0 Hypertensive heart and chronic kidney disease with heart failure and stage 1 through stage 4 chronic kidney disease, or unspecified chronic kidney disease; Z94.2 Lung transplant status; M54.16 Radiculopathy, lumbar region; I25.10 Atherosclerotic heart disease of native coronary artery without angina pectoris; I50.9 Heart failure, unspecified; E78.5 Hyperlipidemia, unspecified; I48.0 Paroxysmal atrial fibrillation; N18.30 Chronic kidney disease, stage 3 unspecified; K21.9 Gastro-esophageal reflux disease without esophagitis; G62.9 Polyneuropathy, unspecified; R53.81 Other malaise; N40.0 Benign prostatic hyperplasia without lower urinary tract symptoms; R33.9 Retention of urine, unspecified; R14.0 Abdominal distension (gaseous); M62.838 Other muscle spasm; G47.00 Insomnia, unspecified; Z79.2 Long term (current) use of antibiotics
CPT/HCPCS: 36415; 71045; 80053; 81001; 82248; 82947; 83036; 83605; 83615; 83735; 83880; 84134; 84145; 85025; 87086; 87088; 92523; 94640; 97110; 97116; 97163; 97165; 97530; 97542; J2003; J7512; J7613; J7644; Q0162